=== PATIENT | female | born 1955 | race Caucasian/White ===

== ENCOUNTER 2018-06-19 05:47 | Inpatient (IN) | payer BC ==
[~2018-06-19 05:47] MED LIST: Buffered Lidocaine 1% SYRIN* 1 ML/SYRINGE INTRADERM ONE; Tranexamic Acid 1,000 MG in NS 0.9% 50 ML* (outpatient use) IV SCH
--- OUTSIDE RECORDS SUMMARY | 2018-06-19 05:51 | XMS REPORT | Continuity of Care Document ---
:1955 External Reference #:[id number] Author Name Hayley ОЛЕГ Hamm Address [address] [facility] [place] [address] Care Team Providers Name Role Phone Channing Quarles MD Primary Care Physician Unavailable Payers Date Identification Numbers Payment Provider Subscriber Effective: 2015 Policy Number: [id number] BS Facets Neil Castro Expires: 2018 PayID: [id number] [address] [address] [place] [id number] Effective: 2006 Policy Number: Lifetime Benefit Neil Castro [id number] Solution Expires: 2015 Group Number: [id number] [address] PayID: [id number] [place] [id number] Effective: 2018 Policy Number: [id number] BS Facets Neil Castro PayID: [id number] [address] [address] [place] [phone] Advance Directives Description No Information Available Problems Active Problems Provider Date Dizziness Yohana Dennison MD, [facility] Onset: 08/27/2014 Hypertrophy of nasal turbinates Justin Neely M.D. Onset: 06/02/2016 Chronic maxillary sinusitis Justin Neely M.D. Onset: 05/19/2016 Chronic rhinitis Justin Neely M.D. Onset: 03/31/2016 Orthostatic hypotension Justin Neely M.D. Onset: 03/31/2016 Dizziness and giddiness Justin Neely M.D. 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 ETOH Use Never used alcohol Tobacco Use Start: Unknown Patient has never smoked Recreational Drug Use Denies Drug Use Smoking Status Reviewed: 06/14/18 Patient has never smoked Exercise Type/Frequency Exercises regularly weekly lawn mowing; occasional walks Allergies, Adverse Reactions, Alerts Active Allergies Reaction Severity Comments Date Amoxicillin rash 08/23/2014 Duricef rash 08/23/2014 Medications Active Medications SIG Qnty Indications Ordering Provider Date Agustín Mag Zinc +D3 as directed Unknown +D3 Tablets Joint Support Formula as directed Unknown Capsules Tylenol as needed Unknown 325mg Tablets Meloxicam 1 by mouth every Unknown 15mg Tablets day Evelyn Allergy 1 by mouth every Unknown 60mg day Tablets Vitamin C 1 by mouth every Unknown 500mg Tablets day ER [place] 3 1 tab by mouth Unknown 1000mg Capsules twice a day History Medications Mometasone Furoate 2 puffs both 17gm J32.0 Justin Neely, 05/19/2016 - sides once a day M.D. 05/31/2016 50mcg/Act Suspension Aleve as needed; On Unknown - 220mg Tablets Hold AT This Time 04/10/2018 Garlic as directed Unknown - 350mg 08/26/2014 Tablets Cayenne Plus Garlic as directed Unknown - 05/08/2018 200-300mg Capsules Macie as directed Unknown - 500mg 05/08/2018 Capsules Mobic 1 by mouth daily, Unknown - 7.5mg Tablets On Hold AT This 07/12/2016 Time Multi For Her 50+ 1 by mouth every Unknown - day 04/10/2018 Tablets Flonase Allergy spray 1 spray in Unknown - Relief each nostril 04/10/2018 50mcg/Act twice daily Suspension Nasonex two sprays each Unknown - 50mcg/Act nostril once 04/10/2018 Suspension daily for 2 weeks. Immunizations Description No Information Available Vital Signs Date Vital Result Comment 05/09/2018 3:08pm Height 66.5 inches 5'6.50" Weight 210.00 lb Heart Rate 72 /min BP Systolic Recheck 132 mmHg BP Diastolic Recheck 84 mmHg Respiratory Rate 16 /min Body Temperature 976.0 F BMI (Body Mass Index) 33.4 kg/m2 09/29/2016 11:19am Height 66.5 inches 5'6.50" Weight 210.00 lb Heart Rate 80 /min BP Systolic Recheck 132 mmHg BP Diastolic Recheck 84 mmHg Respiratory Rate 16 /min Body Temperature 98.0 F BMI (Body Mass Index) 33.4 kg/m2 08/18/2016 9:09am Height 66.5 inches 5'6.50" Weight 207.00 lb Heart Rate 80 /min BP Systolic Recheck 130 mmHg BP Diastolic Recheck 84 mmHg Respiratory Rate 16 /min Body Temperature 97.9 F BMI (Body Mass Index) 32.9 kg/m2 07/21/2016 9:19am Height 66.5 inches 5'6.50" Weight 195.00 lb Heart Rate 80 /min BP Systolic Recheck 138 mmHg BP Diastolic Recheck 84 mmHg Respiratory Rate 16 /min Body Temperature 98.0 F BMI (Body Mass Index) 31.0 kg/m2 06/02/2016 11:02am Height 66.5 inches 5'6.50" Weight 190.00 lb Heart Rate 76 /min BP Systolic Recheck 128 mmHg BP Diastolic Recheck 84 mmHg Respiratory Rate 16 /min Body Temperature 97.6 F BMI (Body Mass Index) 30.2 kg/m2 05/19/2016 1:02pm Height 66.5 inches 5'6.50" Weight 190.00 lb Heart Rate 76 /min BP Systolic Recheck 128 mmHg BP Diastolic Recheck 84 mmHg Respiratory Rate 16 /min Body Temperature 97.7 F BMI (Body Mass Index) 30.2 kg/m2 03/31/2016 1:09pm Height 66.5 inches 5'6.50" Weight 180.00 lb Heart Rate 76 /min BP Systolic Recheck 132 mmHg BP Diastolic Recheck 86 mmHg Respiratory Rate 16 /min Body Temperature 98.3 F BMI (Body Mass Index) 28.6 kg/m2 08/27/2014 9:05am Height 66.5 inches 5'6.50" Weight 184.00 lb Heart Rate 74 /min 74 BP Systolic 140 mmHg right arm, reg cuff BP Diastolic 84 mmHg right arm, reg cuff BP Systolic Sitting 142 mmHg left arm, reg cuff BP Diastolic Sitting 90 mmHg left arm, reg cuff BP Systolic Standing 138 mmHg left arm, reg cuff BP Diastolic Standing 88 mmHg left arm, reg cuff Respiratory Rate 20 /min BMI (Body Mass Index) 29.3 kg/m2 Results Test Date Facility Test Result H/L Range Note CBC Auto Diff 06/06/2018 [facility] White Blood 9.3 10^3/uL N 3.5-10.[address] [place] [address] [phone] Red Blood Count 4.75 10^6/uL N 3.70-4.87 Hemoglobin 13.4 g/dL N 12.0-16.0 Hematocrit 41 % N 33-41 Mean Corpuscular Volume 86 fL N 80-97 Mean Corpuscular Hemoglobin 28 pg N 27-31 Mean Corpuscular HGB Conc 33 g/dL N 31-36 Red Cell Distribution Width 14 % N 10.5-15 Platelet Count 250 10^3/uL N 150-450 Mean Platelet Volume 9.6 fL N 7.4-10.4 Abs Neutrophils 6.0 10^3/uL N 1.5-7.7 Abs Lymphocytes 2.2 10^3/uL N 1.0-4.8 Abs Monocytes 0.7 10^3/uL N 0-0.8 Abs Eosinophils 0.3 10^3/uL N 0-0.6 Abs Basophils 0.1 10^3/uL N 0-0.2 Abs Nucleated RBC 0 10^3/uL Granulocyte % 64.3 % Lymphocyte % 23.7 % Monocyte % 7.1 % Eosinophil % 3.6 % Basophil % 1.3 % Nucleated Red Blood Cells % 0 Comp Metabolic Panel 06/06/2018 [facility] Sodium 140 mmol/L N 135-[address] [place] [address] [phone] Potassium 4.4 mmol/L N 3.5-5.0 Chloride 106 mmol/L N 101-111 Co2 Carbon Dioxide 28 mmol/L N 22-32 Anion Gap 6 mmol/L N 2-11 Glucose 90 mg/dL N 70-100 Blood Urea Nitrogen 20 mg/dL N 6-24 Creatinine 0.72 mg/dL N 0.51-0.95 BUN/Creatinine Ratio 27.8 High 8-20 Calcium 9.3 mg/dL N 8.6-10.3 Total Protein 7.2 g/dL N 6.4-8.9 Albumin 4.6 g/dL N 3.2-5.2 Globulin 2.6 g/dL N 2-4 Albumin/Globulin Ratio 1.8 N 1-3 Total Bilirubin 0.30 mg/dL N 0.2-1.0 Alkaline Phosphatase 59 U/L N 34-104 Alt 20 U/L N 7-52 Ast 21 U/L N 13-39 Egfr Non- 81.6 >60 Egfr 98.7 >60 1 Inr/Protime 06/06/2018 [facility] Inr 0.91 N 0.82-1.[address] [place] [address] [phone] Laboratory test 06/06/2018 [facility] Partial 30.7 seconds N 26.0-36.[address] [place] [place] [address] PTT [phone] Urinalysis 06/06/2018 [facility] Urine Color Straw Profile [address] [place] [address] [phone] Urine Appearance Clear Urine Specific [place] 1.008 Low 1.010-1.030 Urine pH 7.0 N 5-9 Urine Urobilinogen Negative Negative Urine Ketones Negative Negative Urine Protein Negative Negative Urine Leukocytes 1+ Abnormal Negative Urine Blood Negative Negative * * Abnormal Negative 3 Urine Nitrite Negative Negative Urine Bilirubin Negative Negative Urine Glucose Negative Negative Urine White Blood Cell 1+(6-10/hpf) Abnormal Absent Urine Red Blood Cell Trace(0-2/hpf) Absent Urine Bacteria Absent Absent Type & Screen 06/06/2018 [facility] Patient Blood Type A Positive [address] [place] [address] [phone] Antibody Screen NEGATIVE Urine Culture And 06/06/2018 [facility] Urine Culture SEE RESULT [address] [place] [address] [phone] 1 Because ethnic data is not always readily available, this report includes an eGFR for both -Americans and non- Americans. The National Kidney Disease Education Program (NKDEP) does not endorse the use of the MDRD equation for patients that are not between the ages of 18 and 70, are , have extremes of body size, muscle mass, or nutritional status, or are non- or non-. According to the National Kidney Foundation, irrespective of diagnosis, the stage of the disease is based on the level of kidney function: Stage Description GFR(mL/min/1.73 m(2)) 1 Kidney damage with normal or decreased GFR 90 2 Kidney damage with mild decrease in GFR 60-89 3 Moderate decrease in GFR 30-59 4 Severe decrease in GFR 15-29 5 Kidney failure <15 (or dialysis) 2 Standard intensity warfarin therapeutic range: 2.0-3.0 High intensity warfarin therapeutic range: 2.5-3.5 3 *Ascorbic acid is present which may interfere with detection of blood. 4 SEE RESULT BELOW Name: NEIL CASTRO : [address]: Reynaldo Burrell MD Acct: [id number] Unit: [id number] AGE: 62 Location: [facility] Re06/06/18 SEX: F Status: REG REF SPEC: [id number] NANCY: 06/06/18-[address] [facility] [address]: Reynaldo Burrell MD REQ: [id number] RECD: 06/06/18 STATUS: ADRIENNE GONZALEZ DR: Marilyn Quarles ELECTRICIAN SECOND _ SOURCE: URINE SPDESC: ORDERED: Urine Culture QUERIES: Urine Source: Clean Catch Procedure Result Reported Site Urine Culture Final 06/07/18- 1224 ML No growth of clinically significant organisms * ML - Main Lab . END OF REPORT DEPARTMENT OF PATHOLOGY, [address] [place] [address] Hu Lawrence M.D. Director [facility] # [id number] Procedures Date Code Description Status 08/04/2016 19884 Nasal/Sinus Endo/Gunjan Bullosa Completed 08/04/2016 37981 Submucous Resection Inferior Turbinate Partial Or Complete Completed 09/17/2014 03598 ECHO Transthorasic Realtime 2D W Doppler & Color Flow Hosp Completed 08/27/2014 02993 EKG Tracing & Interpretation Completed Encounters Type Date Location Provider Dx Diagnosis Office Visit 05/09/2018 Orthopedic Reynaldo Burrell, M17.12 Unilateral primary 3:00p [facility] [place] osteoarthritis, [place] left knee Office Visit 07/21/2016 [facility] J31.0 Chronic rhinitis 9:15a [employer] AT Jonathan Neely M.D. J34.3 Hypertrophy of nasal turbinates J32.0 Chronic maxillary sinusitis Office Visit 06/02/2016 11:00a [facility] J31.0 Chronic It Network Engineer AT Jonathan Neely M.D. rhinitis J34.3 Hypertrophy of nasal turbinates Office Visit 05/19/2016 1:00p [facility] J31.0 Chronic It Network Engineer AT Jonathan Neely M.D. rhinitis J32.0 Chronic maxillary sinusitis Office Visit 03/31/2016 1:00p [facility] R42 Dizziness and It Network Engineer AT Jonathan Neely M.D. giddiness I95.1 Orthostatic hypotension J31.0 Chronic rhinitis Office Visit 08/27/2014 9:15a [place] 780.4 Dizziness & Cardiology MD Jesi, Gidd[place] [facility] [place] Palpitations Plan of Treatment Future Appointment(s):06/19/2018 7:30 am - YAIR Uribe at [facility]06/29/2018 9:15 am - Reynaldo Burrell M.D. at [facility] AT Xtnbmjrd10/11/2019 1:15 pm - Reynaldo Burrell M.D. at [facility] AT Stqtpkty88/13/2019 7:30 am - Reynaldo Burrell M.D. at [facility]
--- OUTSIDE RECORDS SUMMARY | 2018-06-19 05:51 | XMS REPORT | Continuity of Care Document ---
:1955 External Reference #:[id number] Author Name Antonella Aguirre Care Team Providers Name Role Phone Channing Quarles MD Primary Care Physician Unavailable Payers Date Identification Numbers Payment Provider Subscriber Effective: 2015 Policy Number: [id number] BS Facets Neil Castro Expires: 2018 PayID: [id number] [address] [address] [place] [id number] Effective: 2006 Policy Number: Lifetime Benefit Neil Castro [id number] Solution Expires: 2015 Group Number: [id number] [address] PayID: [id number] [place] [id number] Effective: 2018 Policy Number: [id number] BS Facets Neil Castro PayID: [id number] [address] [address] [place] [address] Advance Directives Description No Information Available Problems Active Problems Provider Date Dizziness Yohana Dennison MD, [facility] Onset: 08/27/2014 Hypertrophy of nasal turbinates Justin eNely M.D. 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 ETOH Use Never used alcohol Tobacco Use Start: Unknown Patient has never smoked Recreational Drug Use Denies Drug Use Smoking Status Reviewed: 06/15/18 Patient has never smoked Exercise Type/Frequency Exercises regularly weekly lawn mowing; occasional walks Allergies, Adverse Reactions, Alerts Active Allergies Reaction Severity Comments Date Amoxicillin rash 08/23/2014 Duricef rash 08/23/2014 Medications Active Medications SIG Qnty Indications Ordering Provider Date Quercetin Unknown 50mg Tablets Iorsfoo-Wieiwlrpk-Cue Unknown c-D3 -D3 Tablets MSM Unknown 500mg Capsules Winifred 3 1 tab by mouth Unknown 1000mg Capsules twice a day Vitamin C 1 by mouth every Unknown 500mg Tablets day ER Evelyn Allergy 1 by mouth every Unknown 180mg day Tablets Meloxicam 1 by mouth every Unknown 15mg Tablets day Tylenol as needed Unknown 325mg Tablets Joint Support Formula as directed Unknown Capsules Agustín Mag Zinc +D3 as directed Unknown +D3 Tablets History Medications Mometasone Furoate 2 puffs both [...] Available Vital Signs Date Vital Result Comment 06/15/2018 11:45am Height 66.5 inches 5'6.50" Weight 210.00 lb Heart Rate 73 /min BP Systolic Sitting 146 mmHg right arm, large cuff, sitting BP Diastolic Sitting 82 mmHg right arm, large cuff, sitting BP Systolic Standing 148 mmHg right arm, large cuff, standing BP Diastolic Standing 88 mmHg right arm, large cuff, standing BP Systolic Lying Down 136 mmHg left arm, large cuff, sitting BP Diastolic Lying Down 78 mmHg left arm, large cuff, sitting Respiratory Rate 18 /min O2 % BldC Oximetry 97 % BMI (Body Mass Index) 33.4 kg/m2 05/09/2018 3:08pm Height 66.5 inches 5'6.50" Weight [...] H/L Range Note CBC Auto Diff 06/06/2018 [facility] White Blood 9.3 10^3/uL N 3.5-10.[address] [place] [address] [phone] Red Blood Count 4.75 10^6/uL N 3.70-4.87 [...] Cells % 0 Comp Metabolic Panel 06/06/2018 [facility] Sodium 140 mmol/L N 135-[address] [place] [address] [phone] Potassium 4.4 mmol/L N 3.5-5.0 Chloride 106 [...] >60 Egfr 98.7 >60 1 Inr/Protime 06/06/2018 [facility] Inr 0.91 N 0.82-1.[address] [place] [address] [phone] Laboratory test 06/06/2018 [facility] Partial 30.7 seconds N 26.0-36.[address] [place] [address] PTT [phone] Urinalysis 06/06/2018 [facility] Urine Color Straw Profile [address] [place] [address] [phone] Urine Appearance Clear Urine Specific [place] 1.008 Low 1.010-1.030 Urine pH 7.0 N [...] Bacteria Absent Absent Type & Screen 06/06/2018 [facility] Patient Blood Type A Positive [address] [place] [address] [phone] Antibody Screen NEGATIVE Urine Culture And 06/06/2018 [facility] Urine Culture SEE RESULT [address] [place] [address] [phone] 1 Because ethnic data is not always [...] [address]: Reynaldo Burrell MD Acct: [id number] Unit: [id number] AGE: 62 Location: PAT Re06/06/18 SEX: F Status: REG REF SPEC: [id number] NANCY: 06/06/18-[address]: Reynaldo Burrell MD REQ: [id number] RECD: 06/06/18151 STATUS: ADRIENNE GONZALEZ DR: Marilyn Quarles TERMINAL SYSTEM OPERATOR _ SOURCE: URINE SPDESC: ORDERED: Urine Culture QUERIES: Urine Source: Clean Catch Procedure Result Reported Site Urine Culture Final 06/07/18- 1224 ML No growth of clinically significant organisms * ML - Main Lab . END OF REPORT DEPARTMENT OF PATHOLOGY, [address], [place], [place] [address] Hu Lawrence M.D. Director [facility] # [id number] Procedures Date Code Description Status 06/15/2018 81686 EKG Tracing & Interpretation Completed 08/04/2016 12426 Nasal/Sinus Endo/Gunjan Bullosa Completed 08/04/2016 26537 Submucous Resection Inferior Turbinate Partial Or Complete Completed 09/17/2014 25611 ECHO Transthorasic Realtime 2D W Doppler & Color Flow Hosp Completed 08/27/2014 65440 EKG Tracing & Interpretation Completed Encounters Type Date Location Provider Dx Diagnosis Office Visit 05/09/2018 Orthopedic Marysol Murphy7.12 Unilateral primary 3:00p [facility] [place] osteoarthritis, [place] left knee Office Visit 07/21/2016 [facility] [place]31.[place] Chronic rhinitis 9:15a [facility] AT Jonathan Neely M.D. J34.3 Hypertrophy of nasal turbinates J32.0 Chronic maxillary sinusitis Office Visit 06/02/2016 11:00a [facility] J31.[place] Chronic [facility] AT Jonathan Neely M.D. rhinitis J34.3 Hypertrophy of nasal turbinates Office Visit 05/19/2016 1:00p [facility] JMario.[place] Chronic [facility] AT Jonathan Neely M.D. rhinitis J32.0 Chronic maxillary sinusitis Office Visit 03/31/2016 1:00p [facility] R42 Dizziness and [facility] AT Jonathan Neely M.D. giddiness I95.1 Orthostatic hypotension J31.0 Chronic rhinitis Office Visit 08/27/2014 9:15a [place] 780.4 Dizziness & Cardiology MD Jesi, Suresh [facility] 785.1 Palpitations Plan of Treatment Future Appointment(s):06/19/2018 7:30 am - YAIR Uribe at [facility]06/29/2018 9:15 am - Reynaldo Burrell M.D. at [facility] AT Lczqucub63/11/2019 1:15 pm - Reynaldo Burrell M.D. at [facility] AT Vhfupstk53/13/2019 7:30 am - Reynaldo Burrell M.D. at [facility] [place]06/15/2018 - Steve Fishman M.D.Z01.810 Encounter for preprocedural cardiovascular examinationFollow up:As neededRecommendations:Cardiac status is stable for tneynvbK81.31 Abnormal electrocardiogram [ECG] [EKG]
[2018-06-19] MEDS ORDERED: Lactated Ringers 1000 ML Bag* 1,000 ML IV SCH (06:00)
[2018-06-19] MEDS ORDERED: Clindamycin 900 MG IVPREMIX(* 0 MG/0 ML SDV IV ONE (06:34)
[2018-06-19] MEDS ORDERED: Propofol* 500 MG/50 ML BTL ONE (06:43)
[2018-06-19] MEDS ORDERED: Propofol* 10 MG/ML 20 ML BTL ONE (06:43)
[2018-06-19] MEDS ORDERED: KETAMINE HCL* 50 MG/ML 10 ML VIAL ONE (06:43)
[2018-06-19] MEDS ORDERED: Midazolam* 1 MG/ML 2 ML VIAL (2 MG) ONE (06:44)
[2018-06-19] MEDS ORDERED: Lidocaine 2% PF * 5 ML VIAL ONE ×3 (06:44→06:56)
[2018-06-19] MEDS ORDERED: fentaNYL* 50 MCG/ML 2 ML VIAL (100 MCG VIAL) ONE (06:44)
[2018-06-19] MEDS ORDERED: ROPIVACAINE 5 MG/ML 30 ML BTL (0.5%) ONE (06:50)
[2018-06-19] MEDS ORDERED: Dexmedetomidine* 200 MCG/2 ML 2 ML VIAL ONE (06:53)
[2018-06-19] MEDS ORDERED: Bupivacaine 0.5% SDV PF* 30ML VIAL ONE (06:56)
[2018-06-19] MEDS ORDERED: ceFAZolin 2 GM PREMIX in ORs 2 GM/50 ML BAG IVPB ONE (07:02)
[2018-06-19] MEDS ORDERED: Bupivacaine 0.25% W/EPI* 10 ML SDV ONE ×2 (07:18→08:41)
[2018-06-19] MEDS ORDERED: Phenylephrine 10 MG/ML VIAL* 1 ML VIAL ONE (08:12)
[2018-06-19] MEDS ORDERED: Acetaminophen TAB* 325 MG PO PRN (08:51)
[2018-06-19] MEDS ORDERED: Naloxone* 0.4 MG/ML 1 ML VIAL IV PRN (08:51)
[2018-06-19] MEDS ORDERED: diPHENhydraMINE IV* 50 MG/ML 1 ml VIAL (BENADRYL) IV PRN ×2 (08:51→09:47)
[2018-06-19] MEDS ORDERED: HYDROmorphone INJ1* 1 MG/ML SYRINGE IV PRN (08:51)
[2018-06-19] MEDS ORDERED: Ketorolac INJ* 30 MG/ML 1 ML VIAL IV PRN (08:51)
[2018-06-19] MEDS ORDERED: Bisacodyl SUPP* 10 MG SUPP PR PRN (09:47)
[2018-06-19] MEDS ORDERED: Morphine 4 MG/ML VIAL (1 ml) 4 MG/ML VIAL IV PRN (09:47)
[2018-06-19] MEDS ORDERED: Ondansetron INJ* 2 MG/ML VIAL IV PRN (09:47)
[2018-06-19] MEDS ORDERED: diPHENhydraMINE PO* 25 MG PO PRN (09:47)
[2018-06-19] MEDS ORDERED: Ondansetron ODT TAB* 4 MG PO PRN (09:47)
[2018-06-19] MEDS ORDERED: Magnesium Hydroxide LIQ* 30 ML UDC PO PRN (09:47)
[2018-06-19] MEDS ORDERED: Acetaminophen TAB* 325 MG PO SCH (10:00)
[2018-06-19] MEDS: D5W 1/2 NS 1000 ML BAG* 1,000 ML IV SCH ×2 (10:59→21:18)
[2018-06-19] MEDS: Acetaminophen TAB* 325 MG PO SCH ×2 (12:57→21:13)
--- NOTE | 2018-06-19 13:56 | OP ---
DATE OF OPERATION: 06/19/18 - ROOM #342 DATE OF : 51 SURGEON: Reynaldo Burrell MD BID ANALYST: Leida Villa RPA ANESTHESIA: Spinal and sedation. PRE-OP DIAGNOSIS: Osteoarthritis, left knee. POST-OP DIAGNOSIS: Osteoarthritis, left knee. OPERATIVE PROCEDURE: Left total knee arthroplasty. ESTIMATED BLOOD LOSS: Less than 50 cc. COMPLICATIONS: None. HARDWARE: Lidia Persona trabecular metal #5 femur, D tibia, 12 mm polyethylene spacer, 32 mm patellar button. Note, there was no cement used as these are trabecular metal parts. INDICATIONS: Ms. Fish is a 63-year-old female who has a long history of troubles with both of her knees. She initially had been treated elsewhere years ago and initially had done alright, but had more troubles with pain and limitations because of the knees. By x-ray, she is [id number] in the medial compartment as well as being nearly [id number] in the lateral compartment. I discussed with her that total knee arthroplasty should work well to decrease her pain and improve her function. Risks of surgery such as infection, scar formation, stiffness, DVT, pulmonary embolism, hardware failure, and continued pain were some of the risks discussed. She had been declared medically optimized and wished to proceed. DESCRIPTION OF PROCEDURE: The patient had an adductor canal block placed in the holding area and there was an attempt for posterior block, but because of the soft tissues, the ultrasound was not powerful enough to visualize where the needle would go, so this was abandoned. The patient was then brought to the OR and spinal anesthesia was introduced. Gunter catheter was placed. Tourniquet was placed over the proximal left thigh and was used during the case. Total tourniquet time would be approximately 55 minutes. Left knee was prepped and then draped. Esmarch was used to exsanguinate the leg and the tourniquet was raised. Midline incision was made beginning just medial to the tibial tubercle and carried about 2 cm above the superior pole of the patella. Incision was carried down through the skin and subcutaneous tissues. Small bleeders encountered were ligated using electrocautery. Extensor mechanism was exposed and a sharp parapatellar arthrotomy was made. Quite a bit of clear yellowish joint fluid was encountered. Soft tissues were sharply elevated from the medial side of the tibia and the fat pad was sharply excised. Patella measured almost 22 mm in thickness and a nice 10 mm cut was taken. Patella was then easily subluxated laterally and the knee was flexed up. Nice exposure of the distal femur was obtained. Step drill was used to open up the femoral canal and the intramedullary guide was placed. This had been set to resect 2 mm of bone and had been at 3 degrees. Intramedullary guide was aligned with the epicondyles and pinned into place. Distal femoral cutting guide was pinned into place and the intramedullary guide was removed. Distal femoral cut was taken and I thought perhaps we had taken a little too much from the lateral side. Nonetheless, nice butterfly cut was obtained. Femur was sized at a 5 and holes were drilled. With the superior hole being run, it appeared I would notch the femur and this was moved up twice by 2 mm and then the drill came out nicely right over the top side of the femur. Cutting guide was then pinned into place and the anterior and posterior femoral cuts followed by the chamfer cuts were taken. Attention was turned to the tibia. Step drill was used to open the tibial canal and intramedullary guide was placed. Outrigger was assembled and adjusted until it appeared it would take 2 mm from the worn medial side. Cutting guide was then pinned into place and double checking all of the alignments, alignment appeared perfect. Tibial cut was taken and it appeared a nice cut was obtained. Spacer block was placed and with the block fitting on the tibia, drop raymundo came right along the anterior spine of the tibia and seemed to point towards the base of the second metatarsal and I was pleased with this cut. Unfortunately, there was some very specific wobble on the femoral side. It appeared that too much had been taken laterally and cutting guide and re-cutting guide for the tibia was placed on the end of the femur. This was the angled cutting guide so that I could take a little bit more from the femoral side and this was done twice as each time approximately a millimeter was taken. With doing this, the 12 spacer block now sat nicely, just a tiny bit of wobble and I thought this would work well. Femur was then re -cut using the all-in-one cutting block and with the 12 spacer block with flexion, she seemed nice and loose as the system is designed to be and in its extension just had a tiny bit of wobble. Tibia was sized and a D sat very nicely. The D was pinned into place and holes were drilled. Trial femur was placed and the notch cut was finished using the notch cut finishing guide and stud holes were drilled. With an 11 poly, she had just a tiny more bit of wobble, but I thought she was seating quite well. Patellar tracking was perfect throughout. Patella was sized and the 32 sat very nicely. Hole was drilled and trial was snapped into place. Again, patellar tracking was perfect. Trial instrumentation was removed and components were called for. Tibia followed by femur and patella were all impacted into place. Nice solid bite was obtained with each. She was trialed with an 11 polyethylene and then a 12 polyethylene and I liked the 12 polyethylene better. 12 polyethylene was then snapped into place. 10 cc of Marcaine with epinephrine was injected behind the medial femoral condyle, another 10 behind the lateral femoral condyle , and a final 10 into the lateral gutter. Knee was again copiously pulse lavaged and over 3 L would be used. 12 polyethylene was then snapped into place. Knee was copiously pulse lavaged and the arthrotomy was repaired using interrupted #1 Vicryl sutures. Tourniquet was let down and no significant bleeding was encountered. Subcutaneous tissues were reapproximated using 2-0 Vicryl. Skin was closed using sarah. Sterile dressing was applied. The patient was then awakened and stable on transfer to the recovery room. [id number]/[facility] #: [id number] RALPH
[2018-06-19] MEDS: traMADol TAB* 50 MG PO SCH ×2 (14:36→23:51)
[2018-06-19] MEDS: ceFAZolin 1 GM ADVAN(*) 1 GM in NS 0.9% 50 ML* 50 ML IVPB SCH ×2 (16:09→23:53)
[2018-06-19] MEDS: oxyCODONE TAB* 5 MG TAB PO PRN ×2 (16:10→20:41)
[2018-06-19] MEDS ORDERED: Warfarin TAB(*) 10 MG PO ONE (17:00)
[2018-06-19] MEDS: Cyclobenzaprine TAB* 10 MG PO PRN (17:38)
[2018-06-19] MEDS: Docusate CAP* 100 MG PO SCH (21:13)
[2018-06-19] MEDS: Magnesium Hydroxide LIQ* 30 ML UDC PO SCH (22:04)
[2018-06-20] MEDS: oxyCODONE TAB* 5 MG TAB PO PRN ×4 (03:28→17:04)
[2018-06-20] MEDS: traMADol TAB* 50 MG PO SCH ×4 (05:55→23:37)
[2018-06-20] MEDS: Acetaminophen TAB* 325 MG PO SCH ×3 (05:55→22:26)
[2018-06-20 06:18] LABS: Hematocrit 35 % (35-47); Hemoglobin 11.7 g/dL (12.0-16.0); Mean Platelet Volume 9.6 fL (7.4-10.4); Platelet Count 158 10^3/uL (150-450)
[2018-06-20 06:22] LABS: INR 1.16 (0.82-1.09)
[2018-06-20 06:39] LABS: BUN/Creatinine Ratio 16.4 (8-20); Calcium 8.2 mg/dL (8.6-10.3); EGFR African American 119.1 (>60); EGFR Non-African American 98.4 (>60); Potassium 3.8 mmol/L (3.5-5.0)
[2018-06-20] MEDS: D5W 1/2 NS 1000 ML BAG* 1,000 ML IV SCH (06:59)
[2018-06-20] MEDS: Cyclobenzaprine TAB* 10 MG PO PRN (07:05)
[2018-06-20] MEDS: Docusate CAP* 100 MG PO SCH ×2 (07:05→22:23)
[2018-06-20] MEDS: ceFAZolin 1 GM ADVAN(*) 1 GM in NS 0.9% 50 ML* 50 ML IVPB SCH (07:05)
[2018-06-20] MEDS: Heparin VIAL(*) 5000 UNITS/ML VIAL (FIVE THOUSAND) SUBCUT SCH ×3 (07:06→23:37)
[2018-06-20] MEDS: Cetirizine* 10 MG TAB PO SCH (07:06)
[2018-06-20] MEDS: Magnesium Hydroxide LIQ* 30 ML UDC PO SCH ×2 (07:39→22:18)
--- NOTE | 2018-06-20 12:15 | PN ---
Progress Note - Progress Note Date of Service: 06/20/18 SOAP: Subjective: []Pt seen at bedside. She feels well. Denies CP, SOB, dizziness, nausea. Last night she had expressed desire to go home, today her pain is worsened and she she would like to spend the day and decide if she is comfortable to DC this afternoon. Objective: [] General: Appears well, NAD LLE: left knee dressing CDI, thigh soft, DF/PF intact, DP2+, sensation intact to light touch distally. Calves supple and nontender without erythema, edema or palpable cords Assessment: [] POD 1 sp LTK Plan: []WBAT PT/OT Heparin bridge to coumadin. Coumaidn 6 mg today Vital Signs Temp 97.4 F 06/20/18 07:32 Pulse 84 06/20/18 07:40 Resp 18 06/20/18 11:29 BP 147/81 06/20/18 07:32 Pulse Ox 97 06/20/18 07:32 Intake & Output 06/19/18 06/20/18 06/20/18 18:59 06:59 18:59 Intake Total 2450 6860 55 Output Total 1980 3400 Balance 470 3460 55 Intake: IV Fluids 1450 2000 LR 1450 cefazolin 105 d5 1/2ns 1895 IVPB 55 cefazolin 55 Oral 1000 4860 Output: Gunter 1750 3400 Residual 30 Gunter 16 Fr 30 Estimated Blood Loss 200 Other: Estimated Void Medium # Bowel Movements 1 Estimated Stool Amount Small # Voids 1 Laboratory Last Values Hgb 11.7 g/dL (12.0-16.0) L 06/20/18 05:44 Hct 35 % (35-47) 06/20/18 05:44 Plt Count 158 10^3/uL (150-450) 06/20/18 05:44 MPV 9.6 fL (7.4-10.4) 06/20/18 05:44 INR (Anticoag Therapy) 1.16 (0.82-1.09) H 06/20/18 05:44 Sodium 135 mmol/L (135-145) 06/20/18 05:44 Potassium 3.8 mmol/L (3.5-5.0) 06/20/18 05:44 Chloride 107 mmol/L (101-111) 06/20/18 05:44 Carbon Dioxide 24 mmol/L (22-32) 06/20/18 05:44 Anion Gap 4 mmol/L (2-11) 06/20/18 05:44 BUN 10 mg/dL (6-24) 06/20/18 05:44 Creatinine 0.61 mg/dL (0.51-0.95) 06/20/18 05:44 Est GFR ( Amer) 119.1 (>60) 06/20/18 05:44 Est GFR (Non-Af Amer) 98.4 (>60) 06/20/18 05:44 BUN/Creatinine Ratio 16.4 (8-20) 06/20/18 05:44 Glucose 131 mg/dL (70-100) H 06/20/18 05:44 Calcium 8.2 mg/dL (8.6-10.3) L 06/20/18 05:44
[2018-06-20] MEDS ORDERED: Warfarin TAB(*) 6 MG PO ONE (17:00)
[2018-06-21 05:40] LABS: Hematocrit 32 % (35-47); Hemoglobin 10.8 g/dL (12.0-16.0); Mean Platelet Volume 9.6 fL (7.4-10.4); Platelet Count 160 10^3/uL (150-450)
[2018-06-21 05:44] LABS: INR 1.68 (0.82-1.09)
[2018-06-21] MEDS: traMADol TAB* 50 MG PO SCH ×2 (05:55→13:01)
[2018-06-21] MEDS: Acetaminophen TAB* 325 MG PO SCH ×2 (05:55→13:01)
[2018-06-21] MEDS: Heparin VIAL(*) 5000 UNITS/ML VIAL (FIVE THOUSAND) SUBCUT SCH (09:06)
[2018-06-21] MEDS: Docusate CAP* 100 MG PO SCH (09:07)
[2018-06-21] MEDS: Magnesium Hydroxide LIQ* 30 ML UDC PO SCH (09:07)
[2018-06-21] MEDS: Cetirizine* 10 MG TAB PO SCH (09:07)
[2018-06-21] MEDS: oxyCODONE TAB* 5 MG TAB PO PRN (09:08)
--- NOTE | 2018-06-21 10:05 | PN ---
Progress Note - Progress Note Date of Service: 06/21/18 SOAP: Subjective: []Pt seen at bedside. She feels very well and desires DC home. Denies CP, SOB, dizziness, nausea. Objective: []General: Well appearing, NAD LLE: left knee dressing changed, incision CDI without erythema or discharge. Thigh is soft. DF/PF intact, DP2+, sensation intact to light touch distally Calves supple and nontender without erythema, edema or palpable cords Assessment: []POD 2 sp LTK Plan: []WBAT PT/OT heparin until DC. Coumaidn 4 mg today Vital Signs Temp 98.2 F 06/21/18 07:26 Pulse 96 06/21/18 07:26 Resp 18 06/21/18 09:08 BP 117/65 06/21/18 07:26 Pulse Ox 96 06/21/18 08:00 Intake & Output 06/20/18 06/21/18 06/21/18 18:59 06:59 18:59 Intake Total 1255 1900 Output Total 700 800 Balance 555 1100 Intake: IVPB 55 cefazolin 55 Oral 1200 1900 Output: Urine 700 800 Other: Estimated Void Medium Medium # Bowel Movements 0 # Voids 1 1 Laboratory Last Values Hgb 10.8 g/dL (12.0-16.0) L 06/21/18 05:17 Hct 32 % (35-47) L 06/21/18 05:17 Plt Count 160 10^3/uL (150-450) 06/21/18 05:17 MPV 9.6 fL (7.4-10.4) 06/21/18 05:17 INR (Anticoag Therapy) 1.68 (0.82-1.09) H 06/21/18 05:17 Sodium 135 mmol/L (135-145) 06/20/18 05:44 Potassium 3.8 mmol/L (3.5-5.0) 06/20/18 05:44 Chloride 107 mmol/L (101-111) 06/20/18 05:44 Carbon Dioxide 24 mmol/L (22-32) 06/20/18 05:44 Anion Gap 4 mmol/L (2-11) 06/20/18 05:44 BUN 10 mg/dL (6-24) 06/20/18 05:44 Creatinine 0.61 mg/dL (0.51-0.95) 06/20/18 05:44 Est GFR ( Amer) 119.1 (>60) 06/20/18 05:44 Est GFR (Non-Af Amer) 98.4 (>60) 06/20/18 05:44 BUN/Creatinine Ratio 16.4 (8-20) 06/20/18 05:44 Glucose 131 mg/dL (70-100) H 06/20/18 05:44 Calcium 8.2 mg/dL (8.6-10.3) L 06/20/18 05:44
--- NOTE | 2018-06-21 10:14 | DS ---
Orthopedic Discharge Summary - Discharge Summary Discharge home in in stable condition 06/21/18 with VNS and home PT. Needs INRs on Mondays and Date of Admission:06/19/18 Date of Discharge: 06/21/18 Date of Surgery: 06/19/18 Attending Orthopedic Provider: Dr Burrell Pre-operative Diagnosis: Left knee arthritis Operative Procedure: left total knee arthroplasty Condition of Patient: stable History: NEIL CASTRO is a 63 year old F with years of increasingly severe left knee pain. Patient has failed conservative management and has elected to undergo a left total knee replacement Hospital Course: NEIL was admitted to [facility] on 06/19/18. Patient underwent a left total knee replacement without complication followed by a brief recovery in PACU and transfer to the Short Stay Surgical Unit in stable condition. Our physical therapy and occupational therapy also participated in this patients care. Post-op day 1: patient was alert and in no acute distress. Dressing was clean, dry and intact. Operative extremity dorsiflexion and plantarflexion intact, sensation intact to light touch distally , DP2+. Post-op day two: dressing was changed, incision was clean, dry and intact. Patient was deemed to be medically and orthopedically stable for discharge home. Physical therapy goals were met. Home Medications Medication Instructions Recorded Confirmed Type Ascorbic Acid [Vitamin C] 1,000 mg PO BID 06/06/18 06/19/18 History Fexofenadine (NF) [Evelyn 180 180 mg PO QAM 06/06/18 06/19/18 History (NF)] Joint Support 1 tab PO QAM 06/06/18 06/19/18 History Methylsulfonylmethane [MSM] 1,000 mg PO QAM 06/06/18 06/19/18 History Multivitamin [Multivitamins] 1 tab PO QAM 06/06/18 06/19/18 History Quercetin 1 tab PO QAM 06/06/18 06/19/18 History Ultimate [place] Q 10 1 tab PO QAM 06/06/18 06/19/18 History Acetaminophen TAB* [Tylenol TAB*] 975 mg PO Q8HR tab 06/21/18 Rx Docusate CAP* [Colace Cap*] 100 mg PO BID PRN #90 cap 06/21/18 Rx Warfarin TAB(*) [Coumadin TAB(*)] 2 mg PO DAILY #90 tab 06/21/18 Rx traMADol TAB* [Ultram*] 50 mg PO Q6HR PRN #56 tab MDD 8 06/21/18 Rx Laboratory Last Values Hgb 10.8 g/dL (12.0-16.0) L 06/21/18 05:17 Hct 32 % (35-47) L 06/21/18 05:17 Plt Count 160 10^3/uL (150-450) 06/21/18 05:17 MPV 9.6 fL (7.4-10.4) 06/21/18 05:17 INR (Anticoag Therapy) 1.68 (0.82-1.09) H 06/21/18 05:17 Sodium 135 mmol/L (135-145) 06/20/18 05:44 Potassium 3.8 mmol/L (3.5-5.0) 06/20/18 05:44 Chloride 107 mmol/L (101-111) 06/20/18 05:44 Carbon Dioxide 24 mmol/L (22-32) 06/20/18 05:44 Anion Gap 4 mmol/L (2-11) 06/20/18 05:44 BUN 10 mg/dL (6-24) 06/20/18 05:44 Creatinine 0.61 mg/dL (0.51-0.95) 06/20/18 05:44 Est GFR ( Amer) 119.1 (>60) 06/20/18 05:44 Est GFR (Non-Af Amer) 98.4 (>60) 06/20/18 05:44 BUN/Creatinine Ratio 16.4 (8-20) 06/20/18 05:44 Glucose 131 mg/dL (70-100) H 06/20/18 05:44 Calcium 8.2 mg/dL (8.6-10.3) L 06/20/18 05:44 Discharge instructions Discharge Instructions following Orthopedic Surgery: Activity: * Weight Bearing as tolerated * Continue physical therapy and occupational therapy exercises as shown * Home physical therapy Wound care: * OK to shower on post-op day 3, no bathing, swimming, or submerging wound. * Use gentle soap, pat dry. Cover with gauze, СВЕТЛАНА wrap or tape. * Visiting home nurse to do wound checks. Call Orthopedic office for: * Increased drainage * Redness * Increased pain * Fever Go to ER with shortness of breath or chest pain. Diet: * Regular diet * Increase fluids and fiber to prevent constipation. * Continue to use stool softeners, call office if no bowel motion within 48 hours. Medications See Home Medication List in your packet for medications that you should take after discharge. DVT Prophylaxis: Coumadin Dosing: * Please note that you have been given 2 mg tablets. * Visiting home nurse to draw blood work for INR on Tuesday and x 1 month. * You will be provided with dose instructions on Mondays and . * If you do not receive dosing instruction on dosing, please call our office right away. Please dilcia dosing instructions on your calendar as they are provided to you. * Dosin mg 06/21. recheck INR 06/22 for further dosing instructions. Call orthopedic office if you do not receive dosing instructions. * This medication increases bleeding tendency Pain Control: Tramadol 50 mg 1-2 tabs every 6 hours as needed for pain, max 8 tabs per day. Hold for sedation. Wean off as soon as able Please note that Percocet contains Tylenol (acetaminophen). Maximum daily dose of Tylenol is 4000 mg from all sources. Antibiotics are required prior to any dental work. FOLLOW UP: Follow up with [Ashanti] Within 4 weeks, call for appointment. Call sooner with any concerns Please call our office with any questions or concerns ([phone])
[2018-06-21 13:03] VITALS: BP 129/91
== END 2018-06-21 13:25 | disposition home health service (06) | DRG 302 ==
LOC: AA 05:47 → SSU 09:47
PROVIDERS: ADMIT Orthopaedic Surgery; ATTEND Orthopaedic Surgery
PROC: 0SRD06A Replacement of Left Knee Joint with Oxidized Zirconium on Polyethylene Synthetic Substitute, Uncemented, Open Approach (ICD-10-PCS; principal; 2018-06-19 07:30)
DX: M17.12 Unilateral primary osteoarthritis, left knee (principal); G44.89 Other headache syndrome; Z79.1 Long term (current) use of non-steroidal anti-inflammatories (NSAID); Z79.899 Other long term (current) drug therapy; Z88.1 Allergy status to other antibiotic agents; Z88.8 Allergy status to other drugs, medicaments and biological substances; Z82.49 Family history of ischemic heart disease and other diseases of the circulatory system; Z80.9 Family history of malignant neoplasm, unspecified
CPT/HCPCS: 36415; 80048; 85014; 85018; 85049; 85610; 88305; 88311; A9270-GY; J0690; J1644; J2250; J2704; J2795; J3010; J3490

== ENCOUNTER 2018-08-21 10:51 | Observation (INO) | payer BC ==
--- NOTE | 2018-08-21 11:24 | ED ---
Dizziness - HPI Summary HPI Summary: This pt is a 63 y/o female presenting to [facility] c/o dizziness since 6 days ago. Pt reports she had dizziness on 08/15/18 and on 08/17/18. She describes dizziness as room spinning sensation. Pt notes her dizziness became worse on 08/17/18 with associated vomiting and went to the [place] ED. She states she had a brain MRI done on 08/18/18, and her PCP, Dr. Quarles, called her today with the results recommending her to come to the ED. Pt reports her dizziness is aggravated with moving too fast or too much. Denies fever, weakness, numbness, tingling, headache. Pt had left knee surgery about 9 weeks ago and notes her balance has not been the same since then. She is still doing physical therapy. She was using a cane after her surgery, however recently pt has been using a walker to ambulate. - History Of Current Complaint Chief Complaint: EDDizziness Stated Complaint: DIZZINESS PER PT Time Seen by Provider: 08/21/18 11:06 Hx Obtained From: Patient Onset/Duration: Still Present Timing: Days Severity Currently: Moderate Character: Room Spinning, Dizzy Aggravating Factor(s): Position Change Alleviating Factor(s): Lying Down Associated Signs And Symptoms: Positive: Vomiting, Unsteady Gait. Negative: Fever, Chills, Other: - NEGATIVE: weakness, numbness, tingling, headache - Allergies/Home Medications Allergies/Adverse Reactions: Allergies Allergy/AdvReac Type Severity Reaction Status Date / Time amoxicillin Allergy Rash Verified 06/19/18 06:38 cefadroxil [From [facility] [place] Allergy Rash Verified 06/19/18 06:38 Home Medications: Home Medications Acetaminophen TAB* [Tylenol TAB*] 975 mg PO TID 08/21/18 [History Confirmed ] Ascorbic Acid TAB* [Vitamin C TAB*] 1,000 mg PO BID 08/21/18 [History Confirmed 08/21/18] Multivitamins/Minerals TAB* [Theragran/minerals TAB*] 1 tab PO QAM 08/21/18 [ History Confirmed 08/21/18] PMH/Surg Hx/FS Hx/Imm Hx Musculoskeletal History: Reports: Hx Arthritis - shoulder, marco a knees Sensory History: Reports: Hx Contacts or Glasses - glasses Denies: Hx Hearing Aid Opthamlomology History: Reports: Hx Contacts or Glasses - glasses Psychiatric History: Denies: Other Psychiatric Issues/Disorders - Surgical History Surgical History: Yes Surgery Procedure, Year, and Place: hysterectomy, 1997, [place] sinus surgery, 2017, [place]. Left knee surgery, [facility] Hx Anesthesia Reactions: No Infectious Disease History: No Infectious Disease History: Denies: Hx Shingles, Hx Tuberculosis, History Other Infectious Disease, Traveled Outside the [place] in Last 30 Days - Family History Known Family History: Positive: Cardiac Disease Negative: Diabetes Family History: CA - Social History Alcohol Use: None Substance Use Type: Reports: None Hx Tobacco Use: No Smoking Status (MU): Never Smoked Tobacco Review of Systems Negative: Fever, Chills Positive: Vomiting Neurological: Other - POSITIVE: dizziness Negative: Headache, Weakness, Paresthesia, Numbness All Other Systems Reviewed And Are Negative: Yes Physical Exam - Summary Physical Exam Summary: VITAL SIGNS: Reviewed. GENERAL: Patient is a well-developed and nourished female who is lying comfortable in the stretcher. Patient is not in any acute respiratory distress. HEAD AND FACE: No signs of trauma. No ecchymosis, hematomas or skull depressions. No sinus tenderness. EYES: PERRLA, EOMI x 2, No injected conjunctiva, no nystagmus. EARS: Hearing grossly intact. Ear canals and tympanic membranes are within normal limits. MOUTH: Oropharynx within normal limits. NECK: Supple, trachea is midline, no adenopathy, no JVD, no carotid bruit, no c- spine tenderness, neck with full ROM. CHEST: Symmetric, no tenderness at palpation LUNGS: Clear to auscultation bilaterally. No wheezing or crackles. CVS: Regular rate and rhythm, S1 and S2 present, no murmurs or gallops appreciated. ABDOMEN: Soft, non-tender. No signs of distention. No rebound, no guarding, and no masses palpated. Bowel sounds are normal. EXTREMITIES: FROM in all major joints, no edema, no cyanosis or clubbing. NEURO: Alert and oriented x 3. No acute neurological deficits. Speech is normal and follows commands. SKIN: Dry and warm Triage Information Reviewed: Yes Vital Signs On Initial Exam: Initial Vitals Temp Pulse Resp BP Pulse Ox 99.2 F 92 18 150/101 97 08/21/18 10:52 08/21/18 10:52 08/21/18 10:52 08/21/18 10:52 08/21/18 10:52 Vital Signs Reviewed: Yes Diagnostics - Vital Signs Vital Signs Temp Pulse Resp BP Pulse Ox 08/21/18 10:52 99.2 F 92 18 150/101 97 - Laboratory Result Diagrams: 08/21/18 11:39 08/21/18 11:39 Lab Statement: Any lab studies that have been ordered have been reviewed, and results considered in the medical decision making process. - Radiology Chest XR Radiology Interpretation Completed By: Radiologist Summary of Radiographic Findings: IMPRESSION: No evidence for acute intrathoracic disease. Dr. Sousa has reviewed this report. - CT Neck CTA CT Interpretation Completed By: Radiologist Summary of CT Findings: IMPRESSION: Approximate 10% RIGHT and 30% LEFT proximal internal carotid artery stenosis. Dr. Sousa has reviewed this report. Head CTA CT Interpretation Completed By: Radiologist Summary of CT Findings: IMPRESSION: Negative for central intracranial large vessel arterial occlusion or high-grade stenosis. Dr. Sousa has reviewed this report. - EKG 11:40 Cardiac Rate: NL - at 82 bpm EKG Rhythm: Sinus Rhythm EKG Comparison: No Significant Change - similar to previous on 06/07/18. Summary of EKG Findings: No ST elevations. Q wave in lead aVF. - Additional Comments Diagnostic Additional Comments: MRI Brain (taken on 08/18/18), as read by the radiologist IMPRESSION: Mild to moderate diffuse atrophy with evidence of minimal periventricular white matter small vessel ischemic disease, and evidence of a small acute or early subacute cortical infarct in the right posterior parietal region. Dr. Sousa has reviewed this report. Re-Evaluation - Re-Evaluation First Eval Re-Evaluation Time: 11:39 Comment: Dr. Gonsales, neurologist, at bedside. Dizzy Course/Dx - Course Assessment/Plan: This pt is a 63 y/o female presenting to [facility] c/o dizziness since 6 days ago. Pt reports she had dizziness on 08/15/18 and on 08/17/18. She describes dizziness as room spinning sensation. Pt notes her dizziness became worse on 08/17/18 with associated vomiting and went to the [place] ED. She states she had a brain MRI done on 08/18/18, and her PCP, Dr. Quarles, called her today with the results recommending her to come to the ED. Pt reports her dizziness is aggravated with moving too fast or too much. Denies fever, weakness, numbness, tingling, headache. Pt had left knee surgery about 9 weeks ago and notes her balance has not been the same since then. She is still doing physical therapy. She was using a cane after her surgery, however recently pt has been using a walker to ambulate. Blood work without any significant abnormality except for glucose of 104, urinalysis is negative for UTI. MRI of the brain done on 08/18/14 impression: shows that the patient has an acute versus subacute infarct. I discussed the case with Dr. Gonsales, neurologist, who came and assessed the patient. After his assessment he recommends for the patient to be admitted to the hospital services for further workup and management. I discussed my physical exam and test results with Dr. Turcios from the hospitalist services and she agrees to admit patient to her services. Patient is hemodynamically stable, alert and oriented x 3. - Diagnoses Provider Diagnoses: Ischemic cerebrovascular accident (CVA) - Provider Notifications Discussed Care Of Patient With: Kiko Gonsales Time Discussed With Above Provider: 11:31 Instructed by Provider To: Other - Discussed with Dr. Gonsales, neurologist, who will come see the pt in the ED. [12:10] Discussed pt care with Dr. Turcios, hospitalist, who accepted the pt for admission. - Critical Care Time Critical Care Time: 30-74 min Discharge - Sign-Out/Discharge Documenting (check all that apply): Patient Departure - [place] [facility] [place] Received Moderate/Deep Sedation with Procedure: No - Discharge Plan Condition: Stable Disposition: ADMITTED TO [facility] - Billing Disposition and Condition Condition: STABLE Disposition: Admitted to [facility] - Attestation Statements Document Initiated by Scribe: Yes Documenting Scribe: Luda Mayorga Provider For Whom Kiley is Documenting (Include Credential): Kobi Sousa MD Scribe Attestation: Luda Dale, scribed for Kobi Sousa MD on 08/21/18 at 2032. Scribe Documentation Reviewed: Yes Provider Attestation: The documentation as recorded by the Luda reyes accurately reflects the service I personally performed and the decisions made by me, Kobi Sousa MD Status of Scribe Document: Viewed
[2018-08-21] MEDS ORDERED: Aspirin 81 mg CHEW TAB* 81 MG TAB.CHEW PO ONE (11:33)
[2018-08-21 11:59] LABS: ABS Basophils 0.1 10^3/ul (0-0.2); ABS Eosinophils 0.2 10^3/ul (0-0.6); ABS Lymphocytes 1.7 10^3/ul (1.0-4.8); ABS Monocytes 0.6 10^3/ul (0-0.8); ABS Neutrophils 5.4 10^3/ul (1.5-7.7); Eosinophil % 2.3 %; Hematocrit 39 % (35-47); Hemoglobin 12.9 g/dL (12.0-16.0); Lymphocyte % 21.3 %; Mean Corpuscular HGB Conc 33 g/dL (31-36); Mean Corpuscular Hemoglobin 28 pg (27-31); Mean Corpuscular Volume 86 fL (80-97); Mean Platelet Volume 9.4 fL (7.4-10.4); Nucleated Red Blood Cells % 0.1; Platelet Count 221 10^3/uL (150-450); Red Blood Count 4.56 10^6 /uL (3.70-4.87); Red Cell Distribution Width 15 % (10-15)
[2018-08-21 12:03] LABS: Urine Appearance Clear; Urine Bacteria Absent (Absent); Urine Bilirubin Negative (Negative); Urine Blood Negative (Negative); Urine Color Straw; Urine Glucose Negative (Negative); Urine Ketones Negative (Negative); Urine Nitrite Negative (Negative); Urine Protein Negative (Negative); Urine Red Blood Cell Trace(0-2/hpf) (Absent); Urine Specific Gravity 1.005 (1.010-1.030); Urine Urobilinogen Negative (Negative); Urine White Blood Cell Trace(0-5/hpf) (Absent)
[2018-08-21 12:07] LABS: Activated Partial Thrombo Time 32.1 seconds (26.0-38.0); INR 0.99 (0.82-1.09)
[2018-08-21 12:19] LABS: Albumin 4.3 g/dL (3.2-5.2); Albumin/Globulin Ratio 1.7 (1-3); BUN/Creatinine Ratio 25.7 (8-20); Calcium 9.1 mg/dL (8.6-10.3); EGFR African American 101.6 (>60); Globulin 2.6 g/dL (2-4); HDL Cholesterol 55.2 mg/dL; Potassium 4.3 mmol/L (3.5-5.0); Total Bilirubin 0.4 mg/dL (0.2-1.0); Total Protein 6.9 g/dL (6.4-8.9)
--- OUTSIDE RECORDS SUMMARY | 2018-08-21 12:19 | XMS REPORT | Continuity of Care Document ---
:1955 External Reference #:[id number] Author Name Maya Cameron Care Team Providers Name Role Phone Channing Quarles MD Primary Care Physician Unavailable Payers Date Identification Numbers Payment Provider Subscriber Effective: 2015 Policy Number: [id number] BS Facets Neil Castro Expires: 2018 PayID: [id number] [address] [address] [place] [id number] Effective: 2006 Policy Number: Lifetime Benefit Neil Castro [id number] Solution Expires: 2015 Group Number: [id number] [address] PayID: [id number] BOB[place] Caro [id number] Effective: 2018 Policy Number: [id number] BS Facets Neil Castro PayID: [id number] [address] [address] [place]OB[place] [address] Problems Active Problems Provider Date Dizziness Yohana Dennison MD, [facility], Onset: 08/27/2014 [facility] Dizziness and giddiness Justin Neely M.D. Onset: 03/31/2016 Orthostatic hypotension Justin Neely M.D. Onset: 03/31/2016 Chronic rhinitis Justin Neely M.D. Onset: 03/31/2016 Chronic maxillary sinusitis Justin Neely M.D. Onset: 05/19/2016 Hypertrophy of nasal turbinates Justin Neely M.D. Onset: 06/02/2016 Localized, primary osteoarthritis Reynaldo Burrell M.D. Onset: 06/29/2018 Arthroplasty of knee Reynaldo Burrell M.D. Onset: 06/29/2018 Aftercare following joint replacement Reynaldo Burrell M.D. Onset: 06/29/2018 surgery Family History Date Family Member(s) Observation Comments General Osteoarthritis General Cancer General Heart Disease Father Stroke Father TIA Father Skin Cancer Father bone cancer Mother Arthritis Social History Type Date Description Comments Sex Unknown Marital Status Single Lives With Alone Occupation Currently Working Occupation [employer] ETOH Use Never used alcohol Tobacco Use Start: Unknown Patient has never smoked Recreational Drug Use Denies Drug Use Smoking Status Reviewed: 08/15/18 Patient has never smoked Exercise Type/Frequency Exercises regularly weekly lawn mowing; occasional walks Allergies, Adverse Reactions, Alerts Active Allergies Reaction Severity Comments Date Amoxicillin rash 08/23/2014 Duricef rash 08/23/2014 Medications Active Medications SIG Qnty Indications Ordering Provider Date Agustín Mag Zinc +D3 as directed Unknown +D3 Tablets Joint Support Formula as directed Unknown Capsules Tylenol as needed Unknown 325mg Tablets Evelyn Allergy 1 by mouth every Unknown 180mg day Tablets Vitamin C 1 by mouth twice Unknown 1000mg daily Tablets [place] 3 1 tab by mouth Unknown 1000mg Capsules twice a day MSM Unknown 500mg Capsules Quercetin Unknown 50mg Tablets Tylenol Extra 2 tablets up to 3 Unknown Strength time daily 500mg Tablets History Medications Mometasone Furoate 2 puffs both 17gm J32.0 Justin Neely, 05/19/2016 - sides once a day M.Mirtha 05/31/2016 50mcg/Act Suspension Tramadol HCL 1-2 tablets by Unknown - 50mg mouth every 6 08/14/2018 Tablets hours as needed pain Lphkdcc-Pxqdikkcp-K Unknown - inc-D3 07/17/2018 -D3 Tablets Nasonex two sprays each Unknown - 50mcg/Act nostril once 04/10/2018 Suspension daily for 2 weeks. Flonase Allergy spray 1 spray in Unknown - Relief each nostril 04/10/2018 50mcg/Act twice daily Suspension Meloxicam 1 by mouth every Unknown - 15mg day 06/07/2018 Tablets Multi For Her 50+ 1 by mouth every Unknown - day 04/10/2018 Tablets Mobic 1 by mouth daily, Unknown - 7.5mg Tablets On Hold AT This 07/12/2016 Time Macie as directed Unknown - 500mg 05/08/2018 Capsules Cayenne Plus Garlic as directed Unknown - 05/08/2018 200-300mg Capsules Garlic as directed Unknown - 350mg 08/26/2014 Tablets Aleve as needed; On Unknown - 220mg Tablets Hold AT This Time 04/10/2018 Vital Signs Date Vital Result Comment 08/15/2018 2:44pm Height 66.5 inches 5'6.50" Weight 203.12 lb Heart Rate 116 /min BP Systolic Sitting 140 mmHg BP Diastolic Sitting 78 mmHg Body Temperature 98.3 F BMI (Body Mass Index) 32.3 kg/m2 07/18/2018 1:50pm Height 66.5 inches 5'6.50" Weight 206.12 lb Heart Rate 99 /min BP Systolic Sitting 118 mmHg BP Diastolic Sitting 88 mmHg Body Temperature 97.6 F BMI (Body Mass Index) 32.8 kg/m2 06/29/2018 9:23am Height 66.5 inches 5'6.50" Weight 213.00 lb Heart Rate 95 /min BP Systolic Sitting 138 mmHg BP Diastolic Sitting 74 mmHg Respiratory Rate 18 /min Body Temperature 97.2 F Pain Level 3 O2 % BldC Oximetry 98 % BMI (Body Mass Index) 33.9 kg/m2 06/15/2018 11:45am Height 66.5 inches 5'6.50" Weight [...] H/L Range Note CBC Auto Diff 06/06/2018 [facility] White Blood 9.3 10^3/uL N 3.5-10.[address] [place] [address] [phone] Red Blood Count 4.75 10^6/uL N 3.70-4.87 [...] Cells % 0 Comp Metabolic Panel 06/06/2018 [facility] Sodium 140 mmol/L N 135-[address] [place] [address] [phone] Potassium 4.4 mmol/L N 3.5-5.0 Chloride 106 [...] >60 Egfr 98.7 >60 1 Inr/Protime 06/06/2018 [facility] Inr 0.91 N 0.82-1.[address] [place] [address] [phone] Laboratory test 06/06/2018 [facility] Partial 30.7 seconds N 26.0-36.[address] [place] [place] [address] PTT [phone] Urinalysis 06/06/2018 [facility] Urine Color Straw Profile [address] [place] [address] [phone] Urine Appearance Clear Urine Specific Hill 1.008 Low 1.010-1.030 Urine pH 7.0 N [...] Bacteria Absent Absent Type & Screen 06/06/2018 [facility] Patient Blood Type A Positive [address] [place] [address] [phone] Antibody Screen NEGATIVE Urine Culture And 06/06/2018 [facility] Urine Culture SEE RESULT [address] [place] [address] [phone] 1 Because ethnic data is not always [...] [address]: Reynaldo Burrell MD Acct: [id number] Unit: [id number] AGE: 62 Location: [facility] Re06/06/18 SEX: F Status: REG REF SPEC: [id number] NANCY: 06/06/18-[address]: Reynaldo Burrell MD REQ: [id number] RECD: 06/06/18-151 STATUS: COMP [facility] DR: Marilyn 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 END OF REPORT DEPARTMENT OF PATHOLOGY, [address] [place] [address] Hu Lawrence M.D. Director [facility] # [id number] Procedures Date Code Description Status 06/19/2018 76603 TKR Total Knee Replacement Completed 06/19/2018 62139 TKR Total Knee Replacement Completed 06/15/2018 70372 EKG, Interpretation Only Completed 06/06/2018 86352 EKG, Interpretation Only Completed 08/04/2016 09570 Nasal/Sinus Endo/Gunjan Bullosa Completed 08/04/2016 72429 Submucous Resection Inferior Turbinate Partial Or Complete Completed 09/17/2014 60059 ECHO Transthorasic Realtime 2D W Doppler & Color Flow Hosp Completed 08/27/2014 34773 EKG Tracing & Interpretation Completed Encounters Type Date Location Provider Dx Diagnosis Office Visit 06/15/2018 Jonathan Shannon Z01.810 Encounter for 12:00p Cardiology Collin Fishman preprocedural cardiovascular examination R94.31 Abnormal electrocardiogram [ECG] [EKG] M17.12 Unilateral primary osteoarthritis, left knee Office Visit 05/09/2018 Orthopedic Reynaldo M17.12 Unilateral primary 3:00p [facility] Bur[facility] M.[facility]. osteoarthritis, left AT [place] knee Office Visit 07/21/2016 [facility] J31.Marcelino Chronic rhinitis 9:15a Patient Relations Manager AT Jonathan Neely M.D. J34.3 Hypertrophy of nasal turbinates J32.0 Chronic maxillary sinusitis Office Visit 06/02/2016 11:00a [facility] J31.0 Chronic Patient Relations Manager AT Jonathan Neely M.D. rhinitis J34.3 Hypertrophy of nasal turbinates Office Visit 05/19/2016 1:00p [facility] JRuslan Chronic Patient Relations Manager AT Jonathan Neely M.D. rhinitis J32.0 Chronic maxillary sinusitis Office Visit 03/31/2016 1:00p [facility] R42 Dizziness and Patient Relations Manager AT Collin Lewisddiness I95.1 Orthostatic hypotension J31.0 Chronic rhinitis Office Visit 08/27/2014 9:15a [place] 780.4 Dizziness & Cardiology MD Jesi, Suresh [facility], FSCAI 785.1 Palpitations Plan of Treatment Future Appointment(s):09/12/2018 2:00 pm - Reynaldo Burrell M.D. at [facility] AT Xtnxldwf40/09/2019 - Reynaldo Burrell M.D.M17.12 Unilateral primary osteoarthritis, left kneeZ47.1 Aftercare following joint replacement yfndyynQ67.652 Presence of left artificial knee jointFollow up:One month
[2018-08-21] MEDS ORDERED: Clopidogrel TAB* 75 MG PO ONE (12:32)
[2018-08-21] MEDS ORDERED: Iohexol 350* (CONTRAST) 500 ML MDV IV ONE (13:18)
--- NOTE | 2018-08-21 13:44 | CONS ---
CONSULTATION REPORT: DATE OF CONSULT: 08/21/18 PATIENT OF: Dr. Sousa and Dr. Quarles. HISTORY OF PRESENT ILLNESS: This is a 63-year-old woman who presents with a 6- day history of intermittent vertigo. She has a longer history of what is listed as vertigo in the chart, but she says this dizziness before was lightheadedness and this was clearly different on Tuesday and then on , she developed significant room spinning sensation, worse this past , 12/26, with associated vomiting. She had been seen at an outside clinic on Tuesday and then [facility] on and had an MRI scan done on 08/18/18 and was referred to here based on the results of the MRI scan. She feels that she is somewhat better, but still has a feeling of imbalance and her walking is not completely back to normal. She has had knee surgery on her left knee in June and was walking without any cane or walker. After that, she had been walking immediately after surgery with a walker, then went to a cane, but since she has become dizzy, she has gone back to the walker. She has had no weakness , numbness, headache, or visual changes. PAST MEDICAL HISTORY: She has a history of arthritis in the knees and both shoulders. The prior lightheadedness tended to occur with sinus infections. PAST SURGICAL HISTORY: She has had a hysterectomy, sinus surgery, and left knee surgery; the left knee surgery being the most recent in June. MEDICATIONS: Medicines at home include: 1. Tylenol p.r.n. 2. Vitamin C. ALLERGIES: She is allergic to PENICILLINS and CEPHALOSPORINS. FAMILY HISTORY: Noncontributory. SOCIAL HISTORY: She does not smoke, drink, or use drugs. PHYSICAL EXAM: Temperature 99.2, pulse 85, respirations 17, blood pressure 120/ 83. She is alert and oriented with normal speech and comprehension. Cranial nerves II through XII are normal without any nystagmus noted. There are no visual field deficits. Facies are symmetric and all cranial nerves were normal. Motor exam revealed normal tone and strength. Gait was tested and she appeared stable with a walker and did not tend to veer off to one side or the other. Xszrvg-th-[id number] was intact. Rapid alternating movements were intact. Fine motor was intact. Her left arm tended to wander slightly with eyes closed , but did not drift. Sensation was intact to light touch and there was no neglect either to sensation or to visual presentation in any visual barr. Reflexes were 1 and equal. Toes were downgoing. Chest: Clear. Cardiovascular : Regular rate and rhythm. Abdomen: Soft with positive bowel sounds. DIAGNOSTIC STUDIES/LAB DATA: EKG showed normal sinus rhythm and evidence of prior septal infarct inferiorly. Chest x-ray showed no acute disease. Blood work showed normal CBC, INR, PTT. LDL was 92. Normal CMP, other than glucose of 104. UA was negative. Her MRI scan was done at [facility] and we are seeing if that could be made available for our review, but the report showed [id number]-vy-[id number] diffuse atrophy consistent with small-vessel ischemic disease and evidence for small acute or early subacute right posterior parietal infarct. IMPRESSION AND PLAN: I discussed with the patient and Dr. Sousa that it is unclear if this subacute infarct relates to her symptoms of dizziness. It is possible that she had a small cerebellar infarct which did not appear on MRI scan. It is possible that this was asymptomatic and related to her small- vessel disease, but I need to take a look at the films to assess whether it is clinically based. For now, she needs both CTA and a transthoracic echo with bubble study. She will be on aspirin and Plavix for now as well as being on a statin. In addition to the stroke, she has some atrophy with periventricular white matter disease suggesting that there may be some ongoing small-vessel ischemic disease. We need to track down the basis of her heart disease that she saw Dr. Fishman for, and given the fact that she has an irregular heart rate unless we find specific etiology for her stroke, we may do some more prolonged monitoring after she is discharged from the hospital. Thank you for sharing her case. [id number]/[facility] #: [id number] RALPH
--- NOTE | 2018-08-21 17:13 | HP ---
CC: Dr. Quarles * HISTORY AND PHYSICAL: DATE OF ADMISSION: 08/21/18 PRIMARY CARE PROVIDER: Dr. Quarles. CHIEF COMPLAINT: Dizziness and abnormal MRI. HISTORY OF PRESENT ILLNESS: Ms. Fish is a 63-year-old female who states that on last Tuesday morning, she awakened from sleep and was getting out of bed and felt as if the room was spinning. She states that she was ultimately able to sit on the edge of the bed for some time and then get up and continue on her way, though with some dizziness. It sounds as if the dizziness completely resolved until morning prior to admission when she again got up out of bed and was sitting on the edge of the bed noting that the room was spinning. Again, this subsided. However, around noon on the prior to admission, she was getting massage and developed sudden onset of severe dizziness and nausea. She vomited. Massage therapist called EMS and the patient was brought to [facility] at that point. On Tuesday, however, the patient went to the walk-in clinic at [place] and was seen by a practitioner there who ordered an MRI as an outpatient. This was ultimately approved and was performed on Tuesday. The workup while at the [place] [facility] was reportedly negative. The patient was not contacted with the results of the MRI until the morning of admission. She was informed that the MRI was abnormal and she may have had a small stroke. In fact, the report which I have available to me states there appears to be a small focus of restricted diffusion in the right posterior parietal cortex suggestive of a small acute or early subacute infarct. There was also evidence of mild to moderate diffuse atrophy, evidence of minimal periventricular white matter small vessel ischemic disease. The patient was referred to the emergency room for further evaluation and neurology evaluation. PAST MEDICAL HISTORY: 1. Osteoarthritis. 2. Allergic rhinitis. PAST SURGICAL HISTORY: 1. Hysterectomy. 2. Sinus surgery. 3. Left TKR. MEDICATIONS: 1. Ascorbic acid 1000 mg p.o. b.i.d. 2. Tylenol 975 mg p.o. t.i.d. 3. Multivitamin 1 tab p.o. daily. 4. MSM 1000 mg p.o. daily. 5. Fexofenadine 180 mg p.o. daily. 6. Joint Health Tablet 1 tab p.o. daily. 7. Ryegrass extract 1 tab p.o. daily. 8. Ultimate omega Q10 one tab p.o. daily. ALLERGIES: AMOXICILLIN and CEFADROXIL. FAMILY HISTORY: Mom is living, she is 87 and she has had mostly issues with osteoarthritis. There is some report of possible heart issues. Dad is living, he is 89, he has had multiple CVAs, sounds as if he has had throat cancer and now has been found to have metastatic cancer of unclear origin, but felt to be likely prostate. SOCIAL HISTORY: The patient is a lifelong nonsmoker. She does not drink alcohol. 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 She is not . She has no children. She indicates that her sisters, specifically Lena would be her healthcare proxy. REVIEW OF SYSTEMS: A complete 11-system review of systems is obtained. Pertinent positives and negatives are as per HPI, and in addition, the patient does complain of intermittent blurry vision that will last a couple minutes when it occurs, this has been occurring over the last several years. She notes that she did have an episode on the day prior to admission and 2 days prior to admission. PHYSICAL EXAMINATION GENERAL: The patient is a well-developed, middle-aged obese female, seen sitting up in the stretcher, in no acute distress. VITAL SIGNS: Blood pressure 149/90, pulse 85, respirations 13, temp 99.2, O2 sat 98% on room air. HEENT: Pupils are equal and round. Extraocular muscles are intact. Oropharynx is clear. Oral mucosa is moist. There is no submandibular, cervical , or supraclavicular adenopathy. Thyroid is not enlarged. No thyroid nodules noted. PULMONARY: Lungs are clear to auscultation bilaterally. CARDIAC: Normal S1, S2. Regular rate and rhythm. I do not appreciate any murmurs. ABDOMEN: Bowel sounds are present. Abdomen is soft, nontender, nondistended. MUSCULOSKELETAL: There is no cyanosis or clubbing of the digits. There is full active range of motion of all 4 extremities. NEUROLOGIC: Cranial nerves II through XII are grossly intact. Sensation is intact to light touch throughout. Strength is 5/5 and symmetric in both upper and lower extremities bilaterally. PSYCH: The patient is alert. She is oriented x3. Affect appears appropriate. SKIN: Warm and dry. There are no rashes. DIAGNOSTIC STUDIES/LAB DATA: WBC 8.0, hemoglobin 12.9, hematocrit 39, platelets 221. INR is 0.99. Sodium 138, potassium 4.3, chloride 105, CO2 of 27 , BUN is 18, creatinine 0.7, glucose 104, lactic acid 0.6, calcium 9.1. Bilirubin 0.4, AST 20, ALT 18, alk phos 72. Troponin 0. Albumin 4.3. Triglyceride 92, total cholesterol 166, LDL 92, HDL 55. Urinalysis reveals clear urine with specific gravity of 1.005, trace leukocyte esterase, and otherwise negative. EKG reveals normal sinus rhythm without any acute ST-T wave abnormalities. Chest x-ray, no evidence for acute intrathoracic disease. CTA head and neck, negative for CT abnormality of the intracranial internal carotid arteries, M1 or M2 segments of the middle cerebral arteries or A1 or A2 segments of the anterior cerebral arteries. There is a patent anterior communicating artery. There are unremarkable cerebellar artery origins and relative diminutive basilar artery. The basilar artery supplies a patent right posterior cerebral artery. Variant hypoplastic right posterior communicating artery. There is patent left posterior cerebral artery supplied by the anterior circulation via dominant left posterior communicating artery. Multiple left thyroid lobe nodules are noted. Bilateral cervical lymph nodes visualized are nonenlarged by short axis size criteria. There is normal configuration of the aortic arch branch vessels. There is a tortuous right common and internal carotid artery. There is mild atherosclerotic calcification of the right carotid bulb and proximal internal carotid artery with approximately 10% stenosis. Impression is negative for central intracranial large vessel arterial occlusion or high-grade stenosis. ASSESSMENT AND PLAN: Ms. Fish is a 63-year-old female with relatively minimal past medical history, who presents to the emergency room with complaints of dizziness and an abnormal MRI suggestive of possible small cerebrovascular accident. 1. Possible lacunar cerebrovascular accident. The patient continues to have dizziness intermittently. She notes it is worse with movement. If she is at rest, she has no dizziness. She has been seen in consultation by Dr. Gonsales who feels it is unclear if this subacute infarct relates to her symptoms of dizziness. He feels that it is possible that there may have been small cerebellar infarcts, which do not appear on MRI scan. It was recommended that she get a transthoracic echocardiogram with bubble study and be started on aspirin and Plavix as well as statin. The patient will be monitored on telemetry for any evidence of atrial fibrillation. She may require long-term arrhythmia monitoring as an outpatient. The patient has now been started on aspirin 81 mg p.o. daily, Plavix 75 mg p.o. daily, and Lipitor 20 mg p.o. daily. Neuro checks will be obtained every 4 hours. At this point, the patient does not need PT, OT, or speech services. 2. Osteoarthritis. Continue p.r.n. Tylenol for complaints of knee and ankle pain. 3. DVT prophylaxis. According to the Adult Thrombosis Prophylaxis Risk Factor Assessment Guide, the patient has a total risk factor score of 4 making her high risk. She will be placed on heparin 5000 units subcutaneous q.8 hours. 4. Code status is full for now, though the patient states that she would not want intubation, so is considering her options. TIME SPENT: Sixty five minutes was spent admitting this patient. [id number]/[facility] #: [id number] RALPH
[2018-08-21] MEDS: Atorvastatin* 20 MG TAB PO SCH (22:05)
[2018-08-21] MEDS: Acetaminophen TAB* 325 MG PO PRN (22:06)
[2018-08-21] MEDS: Heparin VIAL(*) 5000 UNITS/ML VIAL (FIVE THOUSAND) SUBCUT SCH (22:07)
[2018-08-22] MEDS: Heparin VIAL(*) 5000 UNITS/ML VIAL (FIVE THOUSAND) SUBCUT SCH ×2 (06:16→12:00)
[2018-08-22 07:05] LABS: HDL Cholesterol 50.2 mg/dL
[2018-08-22] MEDS: Acetaminophen TAB* 325 MG PO PRN ×2 (08:33→22:03)
[2018-08-22] MEDS ORDERED: Aspirin EC TAB* 81 MG TAB.EC PO SCH (09:00)
[2018-08-22] MEDS ORDERED: Clopidogrel TAB* 75 MG PO SCH (09:00)
--- NOTE | 2018-08-22 10:39 | ECHO ---
*[facility]* [place] [address] Fax #: [phone] Transthoracic Echocardiogram Patient: Diane Fish : 1955 Study Date: 08/22/2018 Age: 63 Gender: F HR: 79 bpm Height: 67 in /170.2 cm BSA: 2.01 m^2 Weight: 196.6 lb /89.4 kg BMI: 30.9 kg/m^2 *Enforcement Manager: * Mae Segal [facility] *Referring Physician: * Joyce TurciosReading Physician: * Maryellen Luna MD Indications: TIA. Abnormal EKG. History: Nonsmoker, no previous medical history. Conclusions Summary: 1. Left ventricle: The cavity size is normal. Wall thickness is mildly increased. Systolic function is vigorous. The estimated ejection fraction is 60-65%. 2. Right ventricle: Systolic function is normal. 3. Atrial septum: Positive bubble study with a large amount of bubbles in the left atrium and left ventricle seen soon after injection on valsava view. Probable PFO/ASD but could not confirm location of shunt with color or 2D Doppler. 4. Mitral valve: There is trace regurgitation. 5. Aortic valve: The valve is trileaflet. The leaflets are normal thickness. There is mild regurgitation. 6. Tricuspid valve: There is trace regurgitation. 7. Aorta: The aorta is well visualized and mildly dilated. The ascending aorta internal dimension in the A-P direction, maximal systolic dimension is 3.8 cm. 8. Compared with prior echocardiogram of 09/17/14, ventricular function not significantly changed, mitral regurgitation improved from mild/moderate. Aorta diameter not significantly changed, + bubble study is new. 9. Consider transesophageal echocardiogram if clinically indicated to further deliniate the location/anatomy of the cardiopulmonay shunt. Study data: Transthoracic echocardiogram. Procedure: Transthoracic echocardiography was performed. Image quality was adequate. A bubble study was performed. Complete 2D, spectral Doppler, and color flow Doppler. Patient status: Inpatient. Patient room number: 432. Rhythm: Normal sinus rhythm. Findings Left ventricle: The cavity size is normal. Wall thickness is mildly increased. Systolic function is vigorous. The estimated ejection fraction is 60-65%. Wall motion is normal; there are no regional wall motion abnormalities. Left ventricular diastolic function parameters are normal. Right ventricle: Well visualized. The cavity size is normal. Wall thickness is normal. Systolic function is normal. Systolic pressure is within the normal range. Ventricular septum: Well visualized. Left atrium: Well visualized. The atrium is normal in size. Right atrium: Well visualized. The atrium is normal in size. Atrial septum: Well visualized. Positive bubble study. Mitral valve: Well visualized. The leaflets are mildly thickened. No echocardiographic evidence for prolapse. There is no evidence of stenosis. There is trace regurgitation. Aortic valve: Well visualized. The valve is trileaflet. The leaflets are normal thickness. There is no evidence of stenosis. There is mild regurgitation. Tricuspid valve: Well visualized. The leaflets are normal thickness. There is no evidence of stenosis. There is trace regurgitation. Pulmonic valve: Well visualized. The leaflets are normal thickness. There is no evidence of stenosis. There is no significant regurgitation. Aorta: The aorta is well visualized and mildly dilated. Aortic arch: The aortic arch is appears normal. Pericardium: There is no pericardial effusion. No evidence of pleural fluid accumulation. Pulmonary arteries: Well visualized. The main pulmonary artery is normal-sized. Systemic veins: Well visualized. Pulmonary veins: Well visualized. Measurements Left ventricle Value Ref Aortic valve continued Value Ref RACHANA, LAX 4.1 cm 3.8 - 5.2 Peak v, S 1.49 m/sec ---- ESD, LAX 2.6 cm 2.2 - 3.5 VTI, S 28.0 cm ---- FS, LAX 37 % 27 - 45 Mean grad, S 4.0 mm Hg ---- PW, ED, LAX (H) 1.1 cm 0.6 - 0.9 Peak grad, S 9.0 mm Hg ---- E', lat fran, TDI (L) 6.5 cm/sec >=10.0 LVOT/AV, VTI ratio 0.69 ---- E/e', lat fran, 10 AR peak v 3.58 m/sec -- -- TDI AR PHT 439 ms ---- E', med fran, TDI (L) 6.2 cm/sec >=7.0 AR peak grad 51 mm Hg ---- E/e', med fran, 11 TDI Mitral valve Value Ref E', avg, TDI 6.4 cm/sec Peak E 0.67 m/sec -- -- E/e', avg, TDI 11 <=14 Peak A 0.84 m/sec ---- Decel time 183 ms ---- LVOT Value Ref Peak E/A ratio 0.8 ---- Peak frank, S 1.02 m/sec VTI, S 19.2 cm Pulmonic valve Value Ref Mean grad, S 2 mm Hg Peak v, S 0.73 m/sec ---- Peak grad, S 2.0 mm Hg ---- Ventricular septum Value Ref IVS, ED (H) 1.3 cm 0.6 - 0.9 Aortic root Value Ref Root diam 3.5 cm <4.1 Right ventricle Value Ref Root max diam, ED 3.5 cm <4.1 RACHANA, LAX 3.0 cm Ascending aorta Value Ref Left atrium Value Ref AAo AP diam, S 3.8 cm ---- AP dim, ES (L) 2.60 cm 2.70 - AAo AP diam/bsa, S 1.9 cm/m^2 ---- 3.80 ML dim, A4C 3.8 cm Aortic arch Value Ref SI dim, A4C 4.9 cm Arch diam 3.1 cm ---- Vol/bsa, ES, 1-p 25 ml/m^2 11 - 40 A4C Decending aorta Value Ref Vol/bsa, ES, A/L 25 ml/m^2 16 - 34 Ashly peak frank 1.24 m/sec ---- Right atrium Value Ref Inferior vena cava Value Ref SI dim, ES 4.8 cm 3.4 - 5.3 Diam 1.5 cm ---- ML dim, ES, A4C 3.1 cm 2.6 - 4.4 SI dim, ES, A4C 4.8 cm 3.4 - 5.3 Aortic valve Value Ref Fran diam, ED 2.0 cm Legend: (L) and (H) dilcia values outside specified reference range. Prepared and electronically signed by Maryellen Luna MD 08/22/2018 10:39
[2018-08-22] MEDS: Cetirizine* 10 MG TAB PO SCH (12:00)
--- NOTE | 2018-08-22 14:48 | PN ---
Subjective Date of Service: 08/22/18 Interval History: Patient feels well today. She denies dizziness (including with change in position and ambulation), lightheadedness, difficulty breathing, chest pain, fever/chills. She admits after her knee surgery she has had very decreased mobility compared to her baseline. Additionally she mentions her mother had a PE after a surgery in her 60s. Objective Active Medications: Acetaminophen (Tylenol Tab*) 975 mg PO Q6H PRN PRN Reason: mild to severe pain Last Admin: 08/22/18 08:33 Dose: 975 mg Aspirin (Aspirin Ec Tab*) 81 mg PO DAILY [facility] Last Admin: 08/22/18 08:33 Dose: 81 mg Atorvastatin Calcium (Lipitor*) 20 mg PO 2100 [facility] Last Admin: 08/21/18 22:05 Dose: 20 mg Cetirizine HCl (Zyrtec*) 10 mg PO DAILY [facility] Last Admin: 08/22/18 12:00 Dose: 10 mg Clopidogrel Bisulfate (Plavix Tab*) 75 mg PO DAILY [facility] Last Admin: 08/22/18 08:33 Dose: 75 mg Heparin Sodium (Porcine) (Heparin Vial(*)) 5,000 units SUBCUT Q8HR [facility] Last Admin: 08/22/18 12:00 Dose: 5,000 units Vital Signs - 8 hr 08/22/18 08/22/18 07:15 11:15 Temperature 97.9 F 97.6 F Pulse Rate 82 77 Respiratory 16 16 Rate Blood Pressure 120/73 113/70 (mmHg) O2 Sat by Pulse 98 97 Oximetry Oxygen Devices in Use Now: None Appearance: Obese white female laying in hospital bed appearing in NAD Eyes: No Scleral Icterus, PERRLA Ears/Nose/Mouth/Throat: Mucous Membranes Moist Neck: NL Appearance and Movements; NL JVP Respiratory: Symmetrical Chest Expansion and Respiratory Effort, Clear to Auscultation Cardiovascular: NL Sounds; No Murmurs; No JVD, RRR Abdominal: NL Sounds; No Tenderness; No Distention Extremities: No Edema, No Clubbing, Cyanosis Skin: No Rash or Ulcers Neurological: Alert and Oriented x 3, NL Sensation, - - strength 5/5 and equal in all extremities Result Diagrams: 08/21/18 11:39 08/21/18 11:39 Microbiology and Other Data: Microbiology 08/21/18 11:45 Urine Culture - Final Urine No Growth (<1,000 CFU/mL) Assess/Plan/Problems-Billing Assessment: 63 yo female with PMHx osteoarthritis with recent elective left TKA presents with episodes of dizziness, found to have subacute lacunar infarct on outpatient brain MRI - Patient Problems (1) Dizziness Current Visit: Yes Status: Acute Code(s): R42 - DIZZINESS AND GIDDINESS SNOMED Code(s): 067161548 Comment: -possibly BPPV, possible TIA -no longer symptomatic today -given information below, more convincing that patient had cerebellar TIA (2) Lacunar infarction Current Visit: Yes Status: Acute Code(s): I63.81 - OTHER CEREB INFRC DUE TO OCCLS OR STENOSIS OF SMALL ARTERY SNOMED Code(s): 037580500 Comment: -outpatient MRI found subacute posterior parietal infarct, which does not correlate with patient's presentation with dizziness -TTE today demonstrated large PFO vs ASD; ELAINE scheduled for tomorrow -given that patient had recent left total knee arthroplasty, patient already has elevated risk of DVT; with known PFO/ASD, this makes risk for embolic stroke much higher; will start anticoagulation with 10 mg eliquis BID x 7days -will d/c ASA and plavix but continue lipitor -bilateral LE dopplers negative for PE -patient is not with respiratory difficulty or tachycardia, but will rule out PE with CTA chest given these findings -Dr. Gonsales recommends hypercoagulability panel; given that patient has been on heparin inpatient, it would not be viable to test antithrombin, protein C and protein S; I will test for antiphospholipid, lupus anticoagulatant, Factor V (3) Osteoarthritis Current Visit: Yes Status: Acute Code(s): M19.90 - UNSPECIFIED OSTEOARTHRITIS, UNSPECIFIED SITE SNOMED Code(s): 373870711 Comment: -status post left TKA 9 weeks ago, which makes patient at increased risk for recent VTE despite dvt ppx (4) DVT prophylaxis Current Visit: Yes Status: Acute Code(s): Z29.9 - ENCOUNTER FOR PROPHYLACTIC MEASURES, UNSPECIFIED SNOMED Code(s): 053347299 Comment: -patient has been receiving subQ heparin, will discontinue given starting oral AC (5) Full code status Current Visit: Yes Status: Acute Code(s): Z78.9 - OTHER SPECIFIED HEALTH STATUS SNOMED Code(s): 231887756
[2018-08-22] MEDS ORDERED: Iohexol 350* (CONTRAST) 500 ML MDV IV ONE (15:00)
--- NOTE | 2018-08-22 19:33 | PN ---
NEUROLOGICAL FOLLOWUP: DATE OF VISIT: 08/22/18 PATIENT OF: YAIR Cesar, and Dr. Luna. HISTORY: This is a 63-year-old woman I am seeing in followup with intermittent vertigo. She still has a feeling of imbalance, but it is better than yesterday. As noted before, her MRI scan showed a right posterior parietal infarct, but her symptoms and signs were consistent with a small cerebellar infarct. Of note, her CTA was negative for any large-vessel occlusion or significant stenosis. She did have an echo that showed a large degree of bubbles appearing quickly across the shunt, which is most likely according to Dr. Luna a PFO, but other things such as ASD or an anomalous pulmonary vein could not be entirely excluded. No clot was directly visualized. She has had normal venous Doppler of her legs. She has had no new symptoms since yesterday. PHYSICAL EXAMINATION: Temperature 97.6, pulse 77, respiratory rate 16, blood pressure 113/70. She is alert and oriented with normal speech and comprehension. Cranial nerves II through XII are intact. Motor exam revealed normal tone. Chest: Clear. Cardiovascular: Regular rate and rhythm. DIAGNOSTIC STUDIES/LAB DATA: Imaging tests: As above. Her LDL was 92 and she is now on a statin. DISCUSSION: Discussed the patient with Iliana Joshua that I am concerned that she had a paradoxical emboli caused by her knee surgery leading to the deep vein thrombosis that then paradoxically embolized to her brain. She clinically has two separate strokes, one visualized on MRI and is asymptomatic, and one causing cerebellar symptoms. The testing for deep venous thrombosis is not conclusive enough in this case with high index of suspicion of embolic disease versus atherosclerotic disease would make sense to anticoagulate at this point. We will also be getting a TE echo and discuss this with the patient to determine what the source of her shunt is and we may need further procedures to rectify this. Thank you for sharing her case. [id number]/[facility] #: [id number] RALPH
[2018-08-22] MEDS: Atorvastatin* 20 MG TAB PO SCH (22:03)
[2018-08-22] MEDS: Apixaban* 5 MG TAB PO SCH (22:03)
[2018-08-23] MEDS ORDERED: Flumazenil* 0.1 MG/ML 5 ML MDV ONE (10:16)
[2018-08-23] MEDS ORDERED: Naloxone* 0.4 MG/ML 1 ML VIAL ONE (10:16)
[2018-08-23] MEDS ORDERED: Lidocaine 2% VISCOUS* 15 ML UDC ONE (10:16)
[2018-08-23] MEDS ORDERED: Midazolam* 1 MG/ML 5 ML VIAL (5 MG) ONE (10:16)
[2018-08-23] MEDS ORDERED: fentaNYL* 50 MCG/ML 2 ML VIAL (100 MCG VIAL) ONE (10:16)
[2018-08-23] MEDS: Cetirizine* 10 MG TAB PO SCH (13:14)
[2018-08-23] MEDS: Apixaban* 5 MG TAB PO SCH (13:14)
[2018-08-23] MEDS: Acetaminophen TAB* 325 MG PO PRN (13:18)
--- NOTE | 2018-08-23 13:32 | TEE ---
*[facility]* [place] [address] Fax #: [phone] Transesophageal Echocardiogram Patient: Diane Fish : 1955 Study Date: 08/23/2018 Age: 63 Gender: F HR: 89 bpm Height: 66 in /167.6 cm BSA: 1.99 m^2 Weight: 196.6 lb /89.4 kg BMI: 31.8 kg/m^2 *Strapper Operator: Mae Jacinto [facility] *Referring Physician: * O'Iliana Geiger *Reading Physician: * Maryellen Luna MD Indications: PFO/ASD, positive bubble study. History: Previously healthy. Conclusions Summary: 1. Left ventricle: The cavity size is normal. Wall thickness is mildly increased. Systolic function is normal. The estimated ejection fraction is 60-65%. 2. Right ventricle: Systolic function is normal. 3. 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 A PFO is demonstrated by 2D, color Doppler and agitated saline contrast. On 2D the patent foramen ovale is located at the superior edge, appears small, bubbles seen traveling through the patent foramen ovale right to left. 4. Mitral valve: There is trace to mild regurgitation. 5. Aortic valve: There is trace to mild regurgitation. 6. Tricuspid valve: There is trace to mild regurgitation. 7. Aorta: The ascending aorta internal dimension in the A-P direction, maximal systolic dimension is 3.8 cm. 8. Ascending aorta: The ascending aorta is mildly dilated. Study data: Diagnostic Transesophageal Echocardiogram Consent: The risks and benefits of the procedure, including alternatives were discussed with the patient and/or their health care sales representative womens health and written informed consent was obtained. Procedure: Initial setup: The patient was brought to the laboratory in the fasting state.Intravenous access was obtained. Surface ECG leads, heart rate, heart rhythm, blood pressure measurements, pulse oximetric signals, and mainstream end-tidal CO2 tracings were monitored throughout the procedure. Sedation. Moderate sedation was administered by nursing staff. History and physical as well as labs were reviewed. An oral bite block was inserted for protection of oral dentition. The patient was placed in the left lateral decubitus position. Topical anesthesia was obtained using viscous lidocaine. A transesophageal probe was inserted by the attending welcome center agent. Transesophageal echocardiography was performed, image quality was good, and all standard views were attempted within the limitations of patient tolerance and safety. Multiple 2D, color flow Doppler and spectral Doppler images were obtained. The transesophageal probe was removed. A bubble study was performed. Images 60 and 86 Location: Procedure room. Patient status: Inpatient. Patient room number: 432. Study status: Routine. Study completion: The patient tolerated the procedure well. There were no complications. Administered medications: Midazolam, 8mg. Fentanyl, 50mcg. Rhythm: Normal sinus rhythm. Findings Left ventricle: The cavity size is normal. Wall thickness is mildly increased. Systolic function is normal. The estimated ejection fraction is 60-65%. Right ventricle: The cavity size is normal. Systolic function is normal. Left atrium: The atrium is normal in size. The appendage is of normal size. Emptying velocity is normal. There is no evidence of a thrombus in the atrial cavity or appendage. No spontaneous echo contrast is observed. Right atrium: The atrium is normal in size. There is no evidence of a thrombus in the atrial cavity or appendage. 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 A PFO is demonstrated by 2D, color Doppler and agitated saline contrast. Positive bubble study. Mitral valve: The valve is structurally normal. There is no evidence of a vegetation. There is trace to mild regurgitation. Aortic valve: The valve is structurally normal. The valve is trileaflet. Cusp separation is normal. There is no evidence of a vegetation. There is no evidence of stenosis. There is trace to mild regurgitation. Tricuspid valve: The valve is structurally normal. There is no evidence of a vegetation. There is trace to mild regurgitation. Pulmonic valve: The valve is structurally normal. There is no evidence of a vegetation. There is trivial regurgitation. Aorta: Aortic root: The aortic root is appears normal. Ascending aorta: The ascending aorta is mildly dilated. Aortic arch: The aortic arch is calcified. Pericardium: There is no significant pericardial effusion. Pulmonary arteries: The main pulmonary artery is normal-sized. Systemic veins: Inferior vena cava: The vessel is normal in size. Superior vena cava: The vessel is appears normal. Pulmonary veins: The flow of the pulmonary veins appears normal. Measurements Aortic valve Value 08/22/2018 Ref Aortic root Value 08/22/2018 Ref Juliana diam, ED 2.3 cm 2.0 ---- Root diam 3.2 cm 3.5 <4. 1 Juliana diam/bsa, 1.2 cm/m^2 ---- ED Ascending aorta Value 08/22/2018 Ref AAo AP diam, S 3.8 cm 3.8 ---- Mitral valve Value 08/22/2018 Ref Peak E 0.63 m/sec 0.67 ---- Peak A 0.87 m/sec 0.84 ---- Decel time 120 ms 183 ---- Peak E/A ratio 0.7 0.8 ---- Legend: (L) and (H) dilcia values outside specified reference range. Prepared and electronically signed by Maryellen Luna MD 08/23/2018 13:31
[2018-08-23 15:56] VITALS: BP 124/73
--- NOTE | 2018-08-23 21:13 | PN ---
PROGRESS NOTE: DATE OF SERVICE: 08/23/18 HISTORY: This is a 63-year-old who had vertigo and is now asymptomatic. She is on Eliquis at this point as well as Lipitor. 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 There are fewer bubbles shunted today than yesterday, according to Dr. Luna, but Dr. Luna feels that this is to not get her to Valsalva today to consider sedation in that she feels that with Valsalva or coughing, the PFO would open and be clinically significant. PHYSICAL EXAMINATION: She remains afebrile with stable vital signs, pulse 85, respirations 12, and blood pressure 134/71. Cranial nerves were normal. Strength was normal. Chest: Clear. Cardiovascular: Regular rate and rhythm. ASSESSMENT AND PLAN: I discussed with the patient and the hospitalist that the most likely thing is that she has a cardioembolic shower associated with her patent foramen ovale and that is the cause of her stroke or strokes and that she should remain on anticoagulation and have a consult with the stroke clinic up in [place] in the near future to see if they agree with my clinical assessment. There is no clinical proof of what I am saying and thinking and treating, but I think that this is the most likely possibility. If so, a decision would have to be made whether to discontinue anticoagulation indefinitely or have patent foramen ovale closure through catheterization procedure. I will see her back in my clinic following the [place] appointment. Thank you for sharing her case. [id number]/[facility] #: [id number] RALPH
--- NOTE | 2018-08-24 04:16 | DS ---
CC: Dr. Quarles; Dr. Gonsales.* DISCHARGE SUMMARY: DATE OF ADMISSION: 08/21/18 DATE OF DISCHARGE: 08/23/18 ATTENDING PHYSICIAN WHILE IN THE HOSPITAL: Dr. Joyce Turcios * (dictated by YAIR Cesar). PRIMARY CARE PROVIDER: Dr. Quarles. CONSULTING NEUROLOGIST: Dr. Gonsales. PRIMARY DIAGNOSES: 1. Subacute cerebrovascular accident and likely transient ischemic attack, likely secondary to paradoxical embolism. 2. Patent foramen ovale. SECONDARY DIAGNOSIS: Osteoarthritis status post recent total knee arthroplasty. 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 PFO demonstrated superior edge, inferior small. No thrombus in all chambers and appendages. STUDIES WHILE IN THE HOSPITAL: Transthoracic echocardiogram on 08/22/18, EF 60 % to 65%, wall thickness of left ventricle is mildly increased. Left ventricular diastolic function parameters are normal. Atrial septum: Positive bubble study with large amount of bubbles in the left atrium. The left ventricle was seen soon after injection on Valsalva view. Probable PFO/ASD, but could not confirm location on 2D Doppler. Further studies on 08/21/18, chest x-ray. Impression: No evidence of acute intrathoracic disease. Head and neck CT angiogram on 08/21/18: 10% right and 30% left proximal internal carotid artery stenosis. Negative CT abnormality of the intracranial internal carotid arteries, M1 or M2 segments of the middle cerebral arteries, or A1 or A2 segments of the anterior cerebral arteries. Patent anterior communicating artery. On 08/22/18, CT angiogram of chest. Impression: No pulmonary embolism is noted. Aorta demonstrates no evidence of aortic dissection. No evidence of alveolar consolidation. Bilateral venous Dopplers on 08/21/18. Impression: No evidence of DVT of either lower extremity. PERTINENT LAB DATA: LDL 92, HDL 50.2, cholesterol 160, triglycerides 91. HISTORY OF PRESENT ILLNESS/HOSPITAL COURSE: Diane Fish is a 63-year-old white female with past medical history of osteoarthritis and allergic rhinitis who presented to the emergency department on 08/21/18 due to dizziness and an abnormal MRI found in the outpatient setting. For further information, please refer to the admitting history and physical dictated by Dr. Joyce Turcios. For your information, reportedly, the patient was found to have a small acute or early subacute infarct of her right posterior parietal cortex, which does not explain her symptoms of dizziness, which are more likely to be found in cerebellar region. The patient was admitted on 08/21/18 and by evaluation on , she was no longer having any dizziness including the change in position. Due to the findings of the possible PFO or ASD on echocardiogram on 08/22/18 and in the setting of recent left total knee arthroplasty, there was high concern for possible recent DVT, which has now resolved, but would have caused the subacute infarct, which was found in outpatient MRI as well as the possible TIA on presentation or possible second stroke. Therefore, the patient was started on Eliquis for full anticoagulation of VTE. PE was effectively ruled out with CT angiogram. Of note, the patient did note she had prolonged slowing of her left lower extremity after her left TKA, which has been persisting longer than Dr. Burrell had hoped, which does further provide suspicion for possible DVT, which would have caused this likely paradoxical embolism. ELAINE additionally confirms PFO; however, Dr. Luna who performed this procedure and the ELAINE echo the day prior believes that given the large amount of bubbles seen on anatomy to cause change of size of PFO with some pressure changes. Dr. Gonsales additionally recommended a hypercoagulable workup given that the patient was previously on heparin during her hospital stay for DVT prophylaxis. I did not order protein C, protein S, or antithrombin as they would not have been viable. I did order test for antiphospholipid lupus and anticoagulant and factor V; however, these tests were sent out and results were not available by the time of discharge. On the date of discharge, the patient is feeling well. She has no dizziness or lightheadedness, chest pain, difficulty breathing or unilateral numbness, weakness, or tingling. She has no complaints. PHYSICAL EXAM: General: Elderly white overweight female lying upright in the hospital bed appearing comfortable in no acute distress, sister at bedside. Eyes: PERRL. Sclerae anicteric. ENT: Mucous membranes moist. Lungs: Clear to auscultation throughout. Cardiac: Regular rate and rhythm without murmurs, rubs, or gallops. Abdomen: Soft, nontender, nondistended. Extremities: No clubbing, cyanosis, or edema. Neuro: Able to move all extremities. No focal deficits. The patient is alert and oriented x3. Strength is 5/5 in all extremities. Skin: Skin is warm, dry, and intact. DISCHARGE PLAN: DIET: Regular unrestricted diet. ACTIVITY: The patient may return to normal activity as tolerated. Dr. Gonsales would like for the patient to have further opinion from neurologist at the [facility] and I have begun the referral for this process with the office there in [place]. Our facility was able to send all records as far as progress notes, imaging and lab studies; however, we are unable to send the outpatient MRI because it is not performed this facility. The patient was recommended to follow up with her primary care provider in 7 to 10 days regarding the hospitalization. At the time of evaluation, it is asked of the primary care provider, Dr. Tsai, to please facilitate providing [facility] with this MRI and to please further facilitate this referral process so that the patient may have timely appointment scheduled. Dr. Gonsales would like to see the patient in followup in outpatient setting after this appointment with the [facility] Neurology occurs. Dr. Gonsales would like to further do an evaluation to confirm the appropriate long-term anticoagulation should this visit ultimately transpire with referral to Cardiology for cardiac intervention to manage her PFO and it will be really appreciative of her primary care provider to facilitate this. Ultimately, at this point it would be recommended for the patient to continue long- term anticoagulation unless otherwise determined. Please follow up the hypercoagulable studies and have a followup as well. The patient was advised to return to the emergency department if she experiences facial droop, dizziness that does not improve with home meclizine, sudden vision changes, slurred speech or unilateral numbness, tingling or weakness. DISCHARGE MEDICATIONS: 1. Lipitor 20 mg p.o. daily. 2. Eliquis 10 mg p.o. b.i.d. until 08/28/18, then change to 5 mg p.o. b.i.d. Continued home medications: 1. [place] Q10 1 tab p.o. daily. 2. [place] grass extract 1 tablet p.o. daily. 3. Cartilage/collagen/hyaluronic acid 1 tab p.o. daily. 4. Fexofenadine 180 mg p.o. daily. 5. Methylsulfonylmethane 1000 mg p.o. daily. 6. Multivitamin 1 tab p.o. daily. 7. Acetaminophen 925 p.o. t.i.d. 8. Ascorbic acid 1000 mg p.o. b.i.d. CONDITION ON DISCHARGE: Stable. DISPOSITION: Home. TIME SPENT: Approximately 45 minutes were spent on this discharge; approximately half of this time was spent at bedside. YAIR CESAR [id number]/[facility] #: [id number] MTDD
[2018-08-24 14:37] LABS: Phospholipid IgM AB <9.4 MPL
[2018-08-24 15:32] LABS: LAC APTT 33 sec (26 - 36); LAC INR 1.2; Prothrombin Time(LAC) 13.2 sec
== END 2018-08-23 17:13 | disposition home or self-care (01) ==
LOC: ED 10:51 → MEDTELE 14:16
PROVIDERS: ADMIT Hospitalist; ATTEND Hospitalist
DX: I63.81 Other cerebral infarction due to occlusion or stenosis of small artery (principal); Q21.1 Atrial septal defect; M19.90 Unspecified osteoarthritis, unspecified site; Z96.651 Presence of right artificial knee joint; Z79.01 Long term (current) use of anticoagulants; Z79.899 Other long term (current) drug therapy; Z90.710 Acquired absence of both cervix and uterus; Z88.0 Allergy status to penicillin; R42 Dizziness and giddiness; Z79.82 Long term (current) use of aspirin
CPT/HCPCS: 36415; 70496; 70498; 71045; 71275; 80053; 80061; 81003; 81015; 83605; 84484; 85025; 85220; 85610; 85613; 85730; 86147; 86850; 86900; 86901; 87086; 93005; 93306; 93312; 93325; 93970; 96372; 99156; 99157; 99284; A9270-GY; G0378; J1644; J2250; J2310; J3010; Q9967

== ENCOUNTER 2023-05-30 05:53 | Observation (INO) ==
[~2023-05-30 05:53] MED LIST changes: -Buffered Lidocaine 1% SYRIN* 1 ML/SYRINGE INTRADERM ONE; +Metoclopramide 5 MG/ML VIAL (10 mg) IV PRN; +NS 0.45% 1000 ml BAG 1,000 ML IV SCH; +Naloxone 0.4 mg VIAL 0.4 mg/ml 1 ml VIAL IV PRN; +Ondansetron 4 mg VIAL 2 MG/ML 2 ml VIAL IV PRN; -Tranexamic Acid 1,000 MG in NS 0.9% 50 ML* (outpatient use) IV SCH
[2023-05-30] MEDS ORDERED: ceFAZolin 2 GM PREMIX 0 GM/0 ML BAG ONE (06:40)
[2023-05-30] MEDS ORDERED: Tranexamic Acid 1 GM/100ML BAG 2,000 MG/200 ML BAG IV ONE (06:40)
[2023-05-30 06:57] LABS: Rapid COVID-19 Molecular Undetected (Undetected)
[2023-05-30] MEDS ORDERED: Propofol 10 MG/ML 20 ML BTL ONE ×4 (07:18→11:02)
[2023-05-30] MEDS ORDERED: Rocuronium 50 mg VIAL 10 mg/ml 5 ml VIAL (50 mg) ONE (07:18)
[2023-05-30] MEDS ORDERED: Lidocaine 2% PF 5 ML VIAL ONE ×2 (07:18→08:41)
[2023-05-30] MEDS ORDERED: ROPIVACAINE 5 MG/ML 30 ML BTL (0.5%) ONE (07:35)
[2023-05-30] MEDS ORDERED: Midazolam 2 mg/2 ml VIAL 1 mg/ml 2 ml VIAL (2 mg) ONE (07:35)
[2023-05-30] MEDS ORDERED: fentaNYL 100 mcg/2 ml 50 MCG/ML VIAL ONE ×2 (07:35→13:50)
[2023-05-30] MEDS ORDERED: Vancomycin 1,000 MG VIAL ONE (07:44)
[2023-05-30] MEDS ORDERED: Clindamycin 900 MG/50 **NS BAG 900 MG/50 ML BAG ONE (08:01)
[2023-05-30] MEDS ORDERED: Propofol 1,000 MG/100 ML BTL ONE (08:41)
[2023-05-30] MEDS ORDERED: Ondansetron 4 mg VIAL 2 MG/ML 2 ml VIAL ONE ×2 (08:58→15:51)
[2023-05-30] MEDS ORDERED: Dexamethasone IV 4 MG/ML VIAL 1 ml VIAL ONE ×2 (08:58→15:51)
[2023-05-30] MEDS ORDERED: HYDROmorphone 0.5 MG/0.5 ML SYRINGE ONE (11:28)
[2023-05-30] MEDS ORDERED: Ondansetron 4 mg VIAL 2 MG/ML 2 ml VIAL IV PRN (11:42)
[2023-05-30] MEDS ORDERED: Ondansetron ODT 4 mg TAB 4 MG TAB PO PRN (11:42)
[2023-05-30] MEDS ORDERED: Lactulose 30 ml UDC PO PRN (11:42)
[2023-05-30] MEDS ORDERED: Magnesium Hydroxide LIQ 30 ML UDC PO PRN (11:42)
[2023-05-30] MEDS: fentaNYL 100 mcg/2 ml 50 MCG/ML VIAL IV PRN (13:52)
[2023-05-30] MEDS: Acetaminophen IV 1 GM/100ML 1,000 MG/100 ML BAG IV ONE (14:45)
[2023-05-30] MEDS: Buffered Lidocaine 1% SYRIN 1 ml INTRADERM ONE (14:46)
[2023-05-30] MEDS: Lactated Ringers 1000 ml BAG 1,000 ML IV SCH ×2 (14:47)
[2023-05-30] MEDS: ceFAZolin 1 GM ADVAN 1 GM in NS 0.9% 50 ML 50 ML IVPB SCH ×2 (14:47→16:17)
[2023-05-30] MEDS: Magnesium Hydroxide LIQ 30 ML UDC PO SCH (20:17)
[2023-05-30] MEDS: Acetylcysteine 600mgCAP(RENAL) PO SCH (22:22)
[2023-05-31] MEDS: Mometasone/Formoter 100/5 MDI INH SCH (02:19)
[2023-05-31 06:50] LABS: Hematocrit 32.8 % (35-45); Hemoglobin 11.1 g/dL (11.5-14.3); Mean Platelet Volume 8.5 fL (7.5-11.2); Platelet Count 189 10^3/uL (150-450)
[2023-05-31 07:32] LABS: Calcium 8.3 mg/dL (8.6-10.3); Creatinine, Serum 0.66 mg/dL (0.51-0.95); Potassium 4.5 mmol/L (3.5-5.0); eGFR CKD-EPI 94.9 (>60)
[2023-05-31] MEDS: Vitamin THERAPEUTIC TAB PO SCH (07:55)
[2023-05-31] MEDS: SPIRIVA Respimat (tiotropium) 2.5 mcg/inh Inhaler INH SCH (08:26)
[2023-05-31] MEDS: Morphine 2 MG/ML SYRINGE IV PRN (11:56)
[2023-06-01 06:20] LABS: Hematocrit 31.4 % (35-45); Hemoglobin 10.8 g/dL (11.5-14.3); Mean Platelet Volume 8.7 fL (7.5-11.2); Platelet Count 164 10^3/uL (150-450)
[2023-06-01 10:27] VITALS: BP 117/70
[2023-06-01 10:38] LABS: Rapid COVID-19 Molecular Undetected (Undetected)
== END 2023-06-01 13:54 ==
LOC: SSU 05:53 → OR 05:53 → EDSTATUS 07:30
PROVIDERS: ADMIT Orthopaedic Surgery; ATTEND Orthopaedic Surgery